=== PATIENT | female | born 1935 | race Caucasian/White ===

== ENCOUNTER → 2017-07-05 | Outpatient (CLI) | payer MEDICARE ==
[2016-10-12 17:26] VITALS: BP 109/98
[~2017-07-05] MED LIST: ACET325T9 PO; ASCO500C PO; ASPI-482 PO; AZIT250T6 PO; CALC667C6 PO; CAND1TAB4 PO; CARV6.25 PO; CHOL500016 PO; CRESTOR5 MG PO; ESOM40CA25 PO; FAMO-63 PO; MECL25TA3 PO; MULT-246 PO; NITR0.4T22 SL; NITR25CA2 PO; SIME125T17 PO; VALS1TAB22 PO; [UNRECOGNIZED DRUG - CODE] PO
--- NOTE | 2017-07-05 09:12 | RAD ---
Renal ultrasound 07/05/2017 Clinical history: Chronic cystitis. Technique: A real-time ultrasound examination of both kidneys and the urinary bladder was performed. Multiple images were obtained. Findings: Comparison study is dated 01/19/2017. Both kidneys are within normal limits in size and echogenicity. The right kidney measures 10.8 cm in length. The left kidney measures 11.2 cm in length. No focal abnormality of either kidney is seen. No hydronephrosis or renal calculus is seen. The urinary bladder is distended with urine. No abnormality is seen. The postvoid residual 7.6 mL. Impression: Negative study.
== END | disposition home or self-care (01) ==
LOC: US 07:45
PROVIDERS: ATTEND Urology
DX: N30.20 Other chronic cystitis without hematuria (principal)
CPT/HCPCS: 76770

== ENCOUNTER → 2017-09-04 | Outpatient (CLI) | payer MEDICARE ==
[2016-10-12 17:26] VITALS: BP 109/98
--- NOTE | 2017-09-04 13:12 | RAD ---
DATE: 09/04/17 EXAM: MAMMO HECTOR SCREENING BILATERAL HISTORY: Routine screening COMPARISON: 08/31/16 This study was interpreted with the benefit of Computerized Aided Detection (CAD). TECHNIQUE: Routine 2-D and 3-D screening mammograms of both breasts are obtained. FINDINGS: Breast Density: HETERO The breast parenchyma is heterogeneously dense, which could reduce sensitivity of mammography. Breast parenchyma level C.. No suspicious clustered microcalcifications, focal asymmetric densities or masses are seen. Stable benign calcifications are seen in both breasts. Skin and nipples are intact IMPRESSION: Benign findings BI-RADS CATEGORY: 2 BENIGN FINDING(S) RECOMMENDED FOLLOW-UP: 12M 12 MONTH FOLLOW-UP PQRS compliance statement: Patient information was entered into a reminder system with a target due date for the next mammogram. Mammography is a sensitive method for finding small breast cancers, but it does not detect them all and is not a substitute for careful clinical examination. A negative mammogram does not negate a clinically suspicious finding and should not result in delay in biopsying a clinically suspicious abnormality. "Our facility is accredited by the [employer] Mammography Program."
== END | disposition home or self-care (01) ==
LOC: MAMMO 07:45
PROVIDERS: ATTEND Nurse Practitioner Family
DX: Z12.31 Encounter for screening mammogram for malignant neoplasm of breast (principal)
CPT/HCPCS: 77063; G0202; 77067

== ENCOUNTER 2017-10-09 07:58 | Emergency (ER) | payer MEDICARE ==
[2017-10-09] MEDS ORDERED: IV NORMAL SALINE 1,000ML 1,000 ML IV SCH (08:02)
[2017-10-09 08:16] LABS: BASO % 1 % (0-3); EOS # 0.3 x10^3/uL (0.0-0.7); EOS % 6 % (0-3); HEMOGLOBIN 14.2 g/dL (12.0-15.5); LYMPH # 1.8 x10^3/uL (1.0-4.8); LYMPH % 35 % (24-48); MEAN CORPUSCULAR HEMOGLOBIN 32 pg (25-35); MEAN CORPUSCULAR HGB CONC 34 g/dL (31-37); MEAN CORPUSCULAR VOLUME 93 fL (79-100); MONO # 0.8 x10^3/uL (0.0-1.1); MONO % 16 % (0-9); NEUT # 2.2 x10^3uL (1.8-7.7); NEUT % 42 % (31-73); PLATELET COUNT 198 x10^3/uL (140-400); RED BLOOD COUNT 4.51 x10^6/uL (3.50-5.40); RED CELL DISTRIBUTION WIDTH 13.6 % (11.5-14.5); WHITE BLOOD COUNT 5.2 x10^3/uL (4.0-11.0)
[2017-10-09 08:22] LABS: CALCIUM 8.9 mg/dL (8.5-10.1); CREATININE 1.1 mg/dL (0.6-1.0); GFR 47.6; POTASSIUM 3.8 mmol/L (3.5-5.1)
--- NOTE | 2017-10-09 08:33 | EKG ---
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
--- NOTE | 2017-10-09 08:34 | RAD ---
CT head without contrast 10/09/2017 Clinical indication: Stroke like symptoms Comparison: None Technique: Multiple CT images of the head were performed without contrast according to standard protocol PQRS Compliance Statement: One or more of the following individualized dose reduction techniques were utilized for this examination: 1. Automated exposure control 2. Adjustment of the mA and/or kV according to patient size 3. Use of iterative reconstruction technique Findings: No acute intracranial hemorrhage or extra-axial fluid collection. The ventricles and subarachnoid spaces are normal in size and configuration for age. There is mild bilateral subcortical and periventricular white matter low attenuation compatible with mild nonspecific white matter disease. Saavedra-white matter interfaces are otherwise maintained. The basal cisterns are patent. Impression: 1. No acute intracranial hemorrhage. 2. Mild nonspecific white matter disease, most commonly seen with chronic small vessel ischemic disease.
[2017-10-09 09:48] LABS: BACTERIA,URINE 0 /HPF (0-FEW); BILIRUBIN,URINE NEG (NEG); CLARITY,URINE CLEAR; COLOR,URINE YELLOW; GLUCOSE,URINE NEG (NEG); NITRITE,URINE NEG (NEG); RBC,URINE 0 /HPF (0-2); SQUAMOUS EPITHELIAL CELL,UR OCC /LPF; UROBILINOGEN,URINE 0.2 mg/dL (0.2 mg/dL); WBC,URINE RARE /HPF (0-4)
--- NOTE | 2017-10-09 10:12 | PHYS DOC ---
Past History Past Medical History: GERD, High Cholesterol, Hypertension, Hypothyroid, Other Past Surgical History: Appendectomy, Tonsillectomy, Other Alcohol Use: None Drug Use: None Adult General Chief Complaint Chief Complaint: OTHER COMPLAINTS HPI HPI Patient is a 82 year old F who presents after having difficulty with word finding at approximately 7 AM this morning. She states that she woke up, did her normal crossword puzzles and ate breakfast. Thereafter she states that while sitting alone she felt that she had something disabled was unable to find words. She did walk down to her friends door and her symptoms had resolved by that time. She has no other associated symptoms. Her symptoms completely resolved. She has no exacerbating or alleviating factors that she knows of. She has no history of stroke or other clot. She does not take blood thinners. Review of Systems Review of Systems Constitutional: Denies fever or chills [] Eyes: Denies change in visual acuity, redness, or eye pain [] HENT: Denies nasal congestion or sore throat [] Respiratory: Denies cough or shortness of breath [] Cardiovascular: No additional information not addressed in HPI [] GI: Denies abdominal pain, nausea, vomiting, bloody stools or diarrhea [] : Denies dysuria or hematuria [] Musculoskeletal: Denies back pain or joint pain [] Integument: Denies rash or skin lesions [] Neurologic: Denies headache, focal weakness or sensory changes [] Endocrine: Denies polyuria or polydipsia [] All other systems were reviewed and found to be within normal limits, except as documented in this note. Family History Family History Noncontributory Current Medications Current Medications Current Medications Medications (Trade) Dose Ordered Sig/[facility] Start Time Stop Time Status Last Admin Dose Admin Sodium Chloride 1,000 ml @ 1,000 mls/hr Q1H 10/09/17 08:02 10/09/17 09:01 DC 10/09/17 08:30 1,000 MLS/HR Allergies Allergies Allergies Coded Allergies Type Severity Reaction Last Updated Verified Penicillins Allergy Intermediate Rash 10/12/16 Yes Sulfa (Sulfonamide Antibiotics) Allergy Intermediate Nausea 10/12/16 Yes Physical Exam Physical Exam Constitutional: Well developed, well nourished, no acute distress, non-toxic appearance. [] HENT: Normocephalic, atraumatic, bilateral external ears normal, oropharynx moist, no oral exudates, nose normal. [] Eyes: PERRLA, EOMI, conjunctiva normal, no discharge. [] Neck: Normal range of motion, no tenderness, supple, no stridor. [] Cardiovascular:Heart rate regular rhythm, no murmur [] Lungs & Thorax: Bilateral breath sounds clear to auscultation [] Abdomen: Bowel sounds normal, soft, no tenderness, no masses, no pulsatile masses. [] Skin: Warm, dry, no erythema, no rash. [] Back: No tenderness, no CVA tenderness. [] Extremities: No tenderness, no cyanosis, no clubbing, ROM intact, no edema. [] Neurologic: Alert and oriented X 3, normal motor function, normal sensory function, no focal deficits noted. [] Psychologic: Affect normal, judgement normal, mood normal. [] Current Patient Data Vital Signs Vital Signs Date Time Temp Pulse Resp B/P (MAP) Pulse Ox O2 Delivery O2 Flow Rate FiO2 10/09/17 10:34 59 16 155/98 (117) 98 Room Air 10/09/17 09:30 61 16 124/95 (105) 97 Room Air 10/09/17 08:00 98.0 58 16 97 Room Air Lab Results Laboratory Tests Test 10/09/17 08:00 10/09/17 09:25 White Blood Count 5.2 x10^3/uL (4.0-11.0) Red Blood Count 4.51 x10^6/uL (3.50-5.40) Hemoglobin 14.2 g/dL (12.0-15.5) Hematocrit 42.0 % (36.0-47.0) Mean Corpuscular Volume 93 fL (79-100) Mean Corpuscular Hemoglobin 32 pg (25-35) Mean Corpuscular Hemoglobin Concent 34 g/dL (31-37) Red Cell Distribution Width 13.6 % (11.5-14.5) Platelet Count 198 x10^3/uL (140-400) Neutrophils (%) (Auto) 42 % (31-73) Lymphocytes (%) (Auto) 35 % (24-48) Monocytes (%) (Auto) 16 % (0-9) H Eosinophils (%) (Auto) 6 % (0-3) H Basophils (%) (Auto) 1 % (0-3) Neutrophils # (Auto) 2.2 x10^3uL (1.8-7.7) Lymphocytes # (Auto) 1.8 x10^3/uL (1.0-4.8) Monocytes # (Auto) 0.8 x10^3/uL (0.0-1.1) Eosinophils # (Auto) 0.3 x10^3/uL (0.0-0.7) Basophils # (Auto) 0.0 x10^3/uL (0.0-0.2) Sodium Level 139 mmol/L (136-145) Potassium Level 3.8 mmol/L (3.5-5.1) Chloride Level 103 mmol/L (98-107) Carbon Dioxide Level 28 mmol/L (21-32) Anion Gap 8 (6-14) Blood Urea Nitrogen 20 mg/dL (7-20) Creatinine 1.1 mg/dL (0.6-1.0) H Estimated GFR (Cockcroft-Gault) 47.6 Glucose Level 110 mg/dL (70-99) H Calcium Level 8.9 mg/dL (8.5-10.1) Troponin I Quantitative < 0.017 ng/mL (0-0.055) Urine Collection Type Unknown Urine Color Yellow Urine Clarity Clear Urine pH 7.5 Urine Specific [place] 1.015 Urine Protein Neg (NEG-TRACE) Urine Glucose (UA) Neg mg/dL (NEG) Urine Ketones (Stick) Neg mg/dL (NEG) Urine Blood Neg (NEG) Urine Nitrite Neg (NEG) Urine Bilirubin Neg (NEG) Urine Urobilinogen Dipstick 0.2 mg/dL (0.2 mg/dL) Urine Leukocyte Esterase Trace (NEG) Urine RBC 0 /HPF (0-2) Urine WBC Rare /HPF (0-4) Urine Squamous Epithelial Cells Occ /LPF Urine Bacteria 0 /HPF (0-FEW) EKG EKG Normal sinus rhythm without any ST changes Radiology/Procedures Radiology/Procedures Head CT Impressions: No acute disease per radiology report Course & Med Decision Making Course & Med Decision Making Pertinent Labs and Imaging studies reviewed. (See chart for details) Admission for observation was declined. Her case was discussed with 2 of her sons. All questions and concerns were addressed. Dragon Disclaimer Dragon Disclaimer This electronic medical record was generated, in whole or in part, using a voice recognition dictation system. Departure Departure: Impression: Primary Impression: Encounter for medical screening examination Disposition: 01 HOME, SELF-CARE Condition: IMPROVED Referrals: MELISA BANUELOS APRN (PCP) Patient Instructions: Transient Ischemic Attack Additional Instructions: Petra was seen in the emergency department for difficulty speaking which resolved prior to evaluation. No emergency medical condition was found on history or physical exam. She did have normal labs and imaging. Her symptoms did not recur during her stay in the emergency room. She was advised to return the emergency room if she develops new or worsening symptoms. She was also advised follow-up with her primary care doctor in the next 2-3 days for further evaluation. BRANDON LEONARD MD Oct 09, 2017 10:12
[2017-10-09 10:34] VITALS: BP 155/98
== END 2017-10-09 10:34 | disposition home or self-care (01) ==
LOC: ER 07:58
DX: E78.00 Pure hypercholesterolemia, unspecified (principal); I10 Essential (primary) hypertension; E03.9 Hypothyroidism, unspecified; K21.9 Gastro-esophageal reflux disease without esophagitis; Z88.0 Allergy status to penicillin; Z88.2 Allergy status to sulfonamides
CPT/HCPCS: 36415; 70450; 80048; 81001; 84484; 85025; 93005; 96360; 99285-25; J7030

== ENCOUNTER → 2017-10-23 | Outpatient (CLI) | payer MEDICARE ==
[2017-10-09 10:34] VITALS: BP 155/98
--- NOTE | 2017-10-23 09:53 | RAD ---
Carotid ultrasound, 10/23/2017: History: TIA, speech difficulty Duplex evaluation of the carotid arteries in neck was performed including grayscale, color-flow and spectral Doppler analysis. There is mild intimal thickening in the common carotid arteries and mild plaquing at the carotid bifurcations. The peak systolic velocity in the right internal carotid artery is 63 cm/s with an end-diastolic velocity of 18 cm/s. The peak systolic velocity in the left internal carotid artery is 81 cm/s with an end-diastolic velocity of 26 cm/s. The Doppler findings suggest luminal narrowing in the 0-50% diameter range. There is no Doppler evidence of high-grade carotid stenosis. Antegrade flow is present in both vertebral arteries in the neck. IMPRESSION: Mild atherosclerotic plaquing at both carotid bifurcations with underlying luminal narrowing in the 0-50% diameter range bilaterally. Note: Stenosis calculations for CTA, MRA and conventional angiography are based upon determination of the distal ICA diameter in accordance with the NASCET methodology. Stenosis calculations for Doppler studies are derived from validated velocity criteria which are known to correlate with NASCET methodology of determining stenosis.
== END | disposition home or self-care (01) ==
LOC: US 08:13
PROVIDERS: ATTEND Internal Medicine
DX: G45.9 Transient cerebral ischemic attack, unspecified (principal)
CPT/HCPCS: 93880

== ENCOUNTER 2017-10-25 10:57 | Emergency (ER) | payer MEDICARE ==
[~2017-10-25] VITALS: Ht 167.6 cm; Wt 88.5 kg
[2017-10-25] MEDS ORDERED: IV NORMAL SALINE 1,000ML 1,000 ML IV SCH (11:31)
[2017-10-25 11:55] LABS: BASO # 0.1 x10^3/uL (0.0-0.2); BASO % 1 % (0-3); EOS # 0.2 x10^3/uL (0.0-0.7); EOS % 3 % (0-3); HEMATOCRIT 39.5 % (36.0-47.0); HEMOGLOBIN 13.3 g/dL (12.0-15.5); LYMPH # 1.8 x10^3/uL (1.0-4.8); LYMPH % 31 % (24-48); MEAN CORPUSCULAR HEMOGLOBIN 31 pg (25-35); MEAN CORPUSCULAR HGB CONC 34 g/dL (31-37); MEAN CORPUSCULAR VOLUME 93 fL (79-100); MONO # 0.8 x10^3/uL (0.0-1.1); MONO % 13 % (0-9); NEUT # 3.1 x10^3uL (1.8-7.7); NEUT % 52 % (31-73); PLATELET COUNT 175 x10^3/uL (140-400); RED BLOOD COUNT 4.25 x10^6/uL (3.50-5.40); RED CELL DISTRIBUTION WIDTH 13.6 % (11.5-14.5); WHITE BLOOD COUNT 5.9 x10^3/uL (4.0-11.0)
--- NOTE | 2017-10-25 12:06 | RAD ---
CT head Indication:dysphagia Technique: CT head without IV contrast Comparison: Previous study from 10/09/2017 Findings: No pathologic extra-axial or intra-axial fluid collection. The ventricles and basal cisterns are within normal limits. No focal loss of solano-white differentiation. Mild amount of periventricular and deep white matter low-attenuation noted. No acute intracranial bleed. Visualized orbits are within normal limits. No calvarial lesions. Visualized paranasal sinuses and mastoid air cells are clear. Impression: No acute intracranial process on this noncontrast CT. Mild white matter changes most likely secondary to chronic ischemic microvascular disease. PQRS Compliance Statement: One or more of the following individualized dose reduction techniques were utilized for this examination: 1. Automated exposure control 2. Adjustment of the mA and/or kV according to patient size 3. Use of iterative reconstruction technique
[2017-10-25 12:07] LABS: ALBUMIN 3.8 g/dL (3.4-5.0); ALBUMIN/GLOBULIN RATIO 1.1 (1.0-1.7); CALCIUM 9.1 mg/dL (8.5-10.1); CREATININE 1.1 mg/dL (0.6-1.0); GFR 47.6; POTASSIUM 3.9 mmol/L (3.5-5.1); TOTAL BILIRUBIN 0.4 mg/dL (0.2-1.0); TOTAL PROTEIN 7.3 g/dL (6.4-8.2)
--- NOTE | 2017-10-25 12:17 | PHYS DOC ---
Past History Past Medical History: GERD, Hypertension, Other Past Surgical History: Appendectomy, Tonsillectomy Alcohol Use: None Drug Use: None Adult General Chief Complaint Chief Complaint: TIA HPI HPI Patient is a 82 year old female who presents with dysarthria. [facility] and for [facility] few minutes she was unable to talk. The time she arrived to the emergency department over symptoms of result. She states she feels tired. She denies any shortness of breath, chest pain, nausea vomiting, she denies any weakness in her arms or legs. She states she's she had similar symptoms several weeks ago and her primary care physician increased her aspirin from 81 mg 162 a day. Review of Systems Review of Systems Constitutional: Denies fever or chills [] Eyes: Denies change in visual acuity, redness, or eye pain [] HENT: Denies nasal congestion or sore throat [] Respiratory: Denies cough or shortness of breath [] Cardiovascular: No additional information not addressed in HPI [] GI: Denies abdominal pain, nausea, vomiting, bloody stools or diarrhea [] : Denies dysuria or hematuria [] Musculoskeletal: Denies back pain or joint pain [] Integument: Denies rash or skin lesions [] Neurologic: Denies headache, focal weakness or sensory changes [] Endocrine: Denies polyuria or polydipsia [] All other systems were reviewed and found to be within normal limits, except as documented in this note. Current Medications Current Medications Current Medications Medications (Trade) Dose Ordered Sig/[facility] Start Time Stop Time Status Last Admin Dose Admin Sodium Chloride 1,000 ml @ 1,000 mls/hr Q1H 10/25/17 11:31 10/25/17 12:30 Allergies Allergies Allergies Coded Allergies Type Severity Reaction Last Updated Verified Penicillins Allergy Intermediate Rash 10/12/16 Yes Sulfa (Sulfonamide Antibiotics) Allergy Intermediate Nausea 10/12/16 Yes Physical Exam Physical Exam Constitutional: Well developed, well nourished, no acute distress, non-toxic appearance. [] HENT: Normocephalic, atraumatic, bilateral external ears normal, oropharynx moist, no oral exudates, nose normal. [] Eyes: PERRLA, EOMI, conjunctiva normal, no discharge. [] Neck: Normal range of motion, no tenderness, supple, no stridor. [] Cardiovascular:Heart rate regular rhythm, no murmur [] Lungs & Thorax: Bilateral breath sounds clear to auscultation [] Abdomen: Bowel sounds normal, soft, no tenderness, no masses, no pulsatile masses. [] Skin: Warm, dry, no erythema, no rash. [] Back: No tenderness, no CVA tenderness. [] Extremities: No tenderness, no cyanosis, no clubbing, ROM intact, no edema. [] Neurologic: Alert and oriented X 3, normal motor function, normal sensory function, no focal deficits noted. [] Psychologic: Affect normal, judgement normal, mood normal. [] Current Patient Data Lab Results Laboratory Tests Test 10/25/17 11:37 White Blood Count 5.9 x10^3/uL (4.0-11.0) Red Blood Count 4.25 x10^6/uL (3.50-5.40) Hemoglobin 13.3 g/dL (12.0-15.5) Hematocrit 39.5 % (36.0-47.0) Mean Corpuscular Volume 93 fL (79-100) Mean Corpuscular Hemoglobin 31 pg (25-35) Mean Corpuscular Hemoglobin Concent 34 g/dL (31-37) Red Cell Distribution Width 13.6 % (11.5-14.5) Platelet Count 175 x10^3/uL (140-400) Neutrophils (%) (Auto) 52 % (31-73) Lymphocytes (%) (Auto) 31 % (24-48) Monocytes (%) (Auto) 13 % (0-9) H Eosinophils (%) (Auto) 3 % (0-3) Basophils (%) (Auto) 1 % (0-3) Neutrophils # (Auto) 3.1 x10^3uL (1.8-7.7) Lymphocytes # (Auto) 1.8 x10^3/uL (1.0-4.8) Monocytes # (Auto) 0.8 x10^3/uL (0.0-1.1) Eosinophils # (Auto) 0.2 x10^3/uL (0.0-0.7) Basophils # (Auto) 0.1 x10^3/uL (0.0-0.2) Prothrombin Time 11.4 SEC (9.4-11.4) Prothrombin Time INR 1.1 (0.9-1.1) PTT 24 SEC (23-33) Sodium Level 137 mmol/L (136-145) Potassium Level 3.9 mmol/L (3.5-5.1) Chloride Level 101 mmol/L (98-107) Carbon Dioxide Level 29 mmol/L (21-32) Anion Gap 7 (6-14) Blood Urea Nitrogen 19 mg/dL (7-20) Creatinine 1.1 mg/dL (0.6-1.0) H Estimated GFR (Cockcroft-Gault) 47.6 BUN/Creatinine Ratio 17 (6-20) Glucose Level 104 mg/dL (70-99) H Lactic Acid Level 0.9 mmol/L (0.4-2.0) Calcium Level 9.1 mg/dL (8.5-10.1) Total Bilirubin 0.4 mg/dL (0.2-1.0) Aspartate Amino Transferase (AST) 20 U/L (15-37) Alanine Aminotransferase (ALT) 23 U/L (14-59) Alkaline Phosphatase 58 U/L (46-116) Troponin I Quantitative < 0.017 ng/mL (0-0.055) Total Protein 7.3 g/dL (6.4-8.2) Albumin 3.8 g/dL (3.4-5.0) Albumin/Globulin Ratio 1.1 (1.0-1.7) EKG EKG EKG shows sinus rhythm with rate of [address] elevations or concerning T-wave inversions, left axis deviation noted, QTC 439 ms, as interpreted by me. Radiology/Procedures Radiology/Procedures [address] [address] IMAGING REPORT Signed PATIENT: MELISA CHAUHAN ACCOUNT: [id number] : 1935 LOCATION: ER AGE: 82 SEX: F EXAM STATUS: PRE ER ORD. PHYSICIAN: AZRA HARTLEY MD REASON: dysphagia PROCEDURE: CT HEAD WO CONTRAST CT head Indication:dysphagia Technique: CT head without IV contrast Comparison: Previous study from 10/09/2017 Findings: No pathologic extra-axial or intra-axial fluid collection. The ventricles and basal cisterns are within normal limits. No focal loss of solano-white differentiation. Mild amount of periventricular and deep white matter low-attenuation noted. No acute intracranial bleed. Visualized orbits are within normal limits. No calvarial lesions. Visualized paranasal sinuses and mastoid air cells are clear. Impression: No acute intracranial process on this noncontrast CT. Mild white matter changes most likely secondary to chronic ischemic microvascular disease. PQRS Compliance Statement: One or more of the following individualized dose reduction techniques were utilized for this examination: 1. Automated exposure control 2. Adjustment of the mA and/or kV according to patient size 3. Use of iterative reconstruction technique DICTATED AND SIGNED BY: MANDI RAYMOND DO DATE: 10/25/17 1201 CC: AZRA HARTLEY MD; MELIAS BANUELOS APRN ~ Impressions: TIA Course & Med Decision Making Course & Med Decision Making Pertinent Labs and Imaging studies reviewed. (See chart for details) Labs, CT head, nonacute. This is her second TIA she's had in the last 6 weeks. Patient being accepted by Dr. santos to [facility]. Her NIH was 0. Her neuro exam is completely normal. Dragon Disclaimer Dragon Disclaimer This electronic medical record was generated, in whole or in part, using a voice recognition dictation system. Departure Departure: Impression: Primary Impression: TIA (transient ischemic attack) Disposition: 02 XFER T-[facility] Admitting Physician: Other Condition: STABLE Referrals: MELISA BANUELOS APRN (PCP) AZRA HARTLEY MD Oct 25, 2017 12:17
[2017-10-25 13:01] LABS: CLARITY,URINE CLEAR; COLOR,URINE YELLOW; GLUCOSE,URINE NEG (NEG)
[2017-10-25 13:02] LABS: AMPHETAMINE/METHAMPHETAMINE NEG (NEG); BACTERIA,URINE 0 /HPF (0-FEW); BARBITURATES NEG (NEG); BENZODIAZEPINES NEG (NEG); BILIRUBIN,URINE NEG (NEG); CANNABINOIDS NEG (NEG); COCAINE NEG (NEG); METHADONE NEG (NEG); NITRITE,URINE NEG (NEG); OPIATES NEG (NEG); PHENCYCLIDINE NEG (NEG); RBC,URINE RARE /HPF (0-2); SQUAMOUS EPITHELIAL CELL,UR OCC /LPF; UROBILINOGEN,URINE 0.2 mg/dL (0.2 mg/dL)
--- NOTE | 2017-10-25 13:47 | EKG ---
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
[2017-10-25 14:28] VITALS: BP 160/84
== END 2017-10-25 15:40 | disposition short-term general hospital (02) ==
LOC: ER 10:57
DX: G45.9 Transient cerebral ischemic attack, unspecified (principal); I10 Essential (primary) hypertension; K21.9 Gastro-esophageal reflux disease without esophagitis; Z88.2 Allergy status to sulfonamides; Z88.0 Allergy status to penicillin
CPT/HCPCS: 36415; 70450; 80053; 80307; 81001; 82947; 83605; 84484; 85025; 85610; 85730; 93005; 96360; 96361; 99285-25; G0479; J7030

== ENCOUNTER 2018-02-10 06:21 | Emergency (ER) | payer MEDICARE ==
[~2018-02-10] VITALS: Ht 167.6 cm; Wt 89.8 kg
--- NOTE | 2018-02-10 06:30 | PHYS DOC ---
Past History Past Medical History: GERD, Hypertension, Other Past Surgical History: Appendectomy, Tonsillectomy Alcohol Use: None Drug Use: None Adult General Chief Complaint Chief Complaint: nausea, dizzy HPI HPI Patient is a 82 year old female who presents with nausea, queasy feeling stomach , dizziness. She states her symptoms started last night she felt nauseated but has not had any vomiting or diarrhea. She states her stomach feels queasy and when she tries to get up to ambulate she feels dizzy, off-balance type symptoms , no vertigo noted. [facility] is reporting or did orthostatics and reported it was normal. She was given Zofran and feels better now. She denies any chest pain shortness of breath fevers chills. She has a history of hypothyroidism, hypertension, dyslipidemia, TIA, and is on Plavix. She also has a history of recurrent UTIs and takes Keflex for this. Review of Systems Review of Systems Constitutional: Denies fever or chills [] Eyes: Denies change in visual acuity, redness, or eye pain [] HENT: Denies nasal congestion or sore throat [] Respiratory: Denies cough or shortness of breath [] Cardiovascular: No additional information not addressed in HPI [] GI: Positive for abdominal pain, nausea,Denies vomiting, bloody stools or diarrhea [] : Denies dysuria or hematuria [] Musculoskeletal: Denies back pain or joint pain [] Integument: Denies rash or skin lesions [] Neurologic: Denies headache, focal weakness or sensory changes [] Endocrine: Denies polyuria or polydipsia [] All other systems were reviewed and found to be within normal limits, except as documented in this note. Allergies Allergies Allergies Coded Allergies Type Severity Reaction Last Updated Verified Penicillins Allergy Intermediate Rash 10/12/16 Yes Sulfa (Sulfonamide Antibiotics) Allergy Intermediate Nausea 10/12/16 Yes Physical Exam Physical Exam Constitutional: Well developed, well nourished, no acute distress, non-toxic appearance. [] HENT: Normocephalic, atraumatic, bilateral external ears normal, oropharynx moist, no oral exudates, nose normal. [] Eyes: PERRLA, EOMI, conjunctiva normal, no discharge. [] Neck: Normal range of motion, no tenderness, supple, no stridor. [] Cardiovascular:Heart rate regular rhythm, no murmur [] Lungs & Thorax: Bilateral breath sounds clear to auscultation [] Abdomen: Bowel sounds normal, soft, no tenderness, no masses, no pulsatile masses. [] Skin: Warm, dry, no erythema, no rash. [] Back: No tenderness, no CVA tenderness. [] Extremities: No tenderness, no cyanosis, no clubbing, ROM intact, no edema. [] Neurologic: Alert and oriented X 3, normal motor function, normal sensory function, no focal deficits noted. [] Psychologic: Affect normal, judgement normal, mood normal. [] EKG EKG EKG shows sinus bradycardia with rate of 43 bpm without any concerning ST elevations or T-wave inversions, left axis deviation noted, QTC 439 ms, as interpreted by me. Of note on September 2017 she had 2 EKGs with heart rates of 52 and 58 and 30 EKG in March 2013 with a heart rate of 57 Radiology/Procedures Radiology/[place] [address] IMAGING REPORT Signed PATIENT: MELISA CHAUHAN ACCOUNT: [id number] : 1935 LOCATION: ER AGE: 82 SEX: F EXAM STATUS: REG ER ORD. PHYSICIAN: AZRA HARTLEY MD REASON: dizziness PROCEDURE: PORTABLE CHEST 1V Indication: Dizziness with nausea Technique: Portable AP upright chest x-ray Comparison: Previous study from 08/02/2013 Findings: Heart is normal in size. Stable elevation of right hemidiaphragm noted. Lungs are clear. No pneumothorax or pleural effusion. Moderate-sized hiatal hernia noted. Visualized bony thorax within normal limits. Impression: No acute cardiopulmonary process. Small to moderate sliding hiatal hernia. DICTATED AND SIGNED BY: MANDI RAYMOND DO DATE: 02/10/18 0746 CC: AZRA HARTLEY MD; MELISA BANUELOS ACCOUNTS PAYABLE OR RECEIVABLE CLERK ~ Impressions: Dizziness Bradycardia UTI Course & Med Decision Making Course & Med Decision Making Pertinent Labs and Imaging studies reviewed. (See chart for details) Orthostatics was repeated here and on supine blood pressure 140/73 the heart rate 52 and then standing was 146/65 with heart rate of 55, laying blood pressure 115/72 with a heart rate of 55. EKG does show sinus bradycardia rate of 43 previous EKGs all head her heart rates in the 50s from 50 to up to 58. She currently has a heart rate in the mid 50s. She states she feels better after she received IV fluids. She was able to ambulate to the bathroom and back without any assistance or difficulties. We repeated a set of troponins and CK- MB which is normal, and I've encouraged her to decrease/DC her metoprolol and follow-up with primary care physician. Encouraged tomorrow to call her grip assembler at [facility] and let them know about her bradycardia and holding her metoprolol. She is a UTI and she received 1 g of Rocephin is being discharged with 7 days of Macrobid. She does have an allergy to penicillin and sulfa but has tolerated Macrobid and cephalosporins in the past She is requesting we discharged home. Return precautions given. She is agreeable plan being discharged in stable condition at this time. Dragon Disclaimer Aleta Disclaimer This electronic medical record was generated, in whole or in part, using a voice recognition dictation system. Departure Departure: Impression: Primary Impression: UTI (urinary tract infection) Disposition: HOME, SELF-CARE Condition: STABLE Referrals: MELISA BANUELOS APRN (PCP) Patient Instructions: Dizziness Additional Instructions: Your being discharged home. Your heart rate has improved from the 40s and to your normal rate of 50 and you feel better after receiving IV fluids. You have bacteria in your urine and signs of a bladder infection. You received IV antibiotics called Rocepshadn, and your being discharged with Macrobid for the next 7 days. You will need to stop taking your metoprolol over the next few days and record your blood pressure and heart rate. Tomorrow morning, Sunday, you will need to call your grip assembler and inform them of your heart rate that was in the mid 40s and your dizziness and that we've asked you to not take your metoprolol for the next few days. If you develop throbbing headache, chest pain , shortness of breath, blood pressures greater than 170s, worsening dizziness, or any other concerns you can return back to the ER. You should also follow up your primary care physician within the next few days. Scripts Nitrofurantoin Monohyd/M-Cryst (MACROBID 100 MG CAPSULE) 100 Mg Capsule 1 CAP PO BID, #14 CAP Prov: AZRA HARTLEY MD 02/10/18 AZRA HARTLEY MD Feb 10, 2018 06:30
[2018-02-10 06:49] LABS: BASO # 0.1 x10^3/uL (0.0-0.2); BASO % 1 % (0-3); EOS # 0.1 x10^3/uL (0.0-0.7); EOS % 2 % (0-3); HEMATOCRIT 38.8 % (36.0-47.0); HEMOGLOBIN 13.3 g/dL (12.0-15.5); LYMPH # 1.7 x10^3/uL (1.0-4.8); LYMPH % 30 % (24-48); MEAN CORPUSCULAR HEMOGLOBIN 32 pg (25-35); MEAN CORPUSCULAR HGB CONC 34 g/dL (31-37); MEAN CORPUSCULAR VOLUME 92 fL (79-100); MONO # 0.6 x10^3/uL (0.0-1.1); MONO % 11 % (0-9); NEUT # 3.1 x10^3uL (1.8-7.7); NEUT % 56 % (31-73); PLATELET COUNT 178 x10^3/uL (140-400); RED BLOOD COUNT 4.23 x10^6/uL (3.50-5.40); RED CELL DISTRIBUTION WIDTH 13.5 % (11.5-14.5); WHITE BLOOD COUNT 5.5 x10^3/uL (4.0-11.0)
--- NOTE | 2018-02-10 06:49 | EKG ---
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
[2018-02-10] MEDS ORDERED: calcium (06:55)
[2018-02-10] MEDS ORDERED: LOSA1TAB22 PO (06:58)
[2018-02-10] MEDS ORDERED: CEPH-263 PO (06:58)
[2018-02-10] MEDS ORDERED: CLOP75TA57 PO (06:59)
[2018-02-10] MEDS ORDERED: PRAV20TA2 PO (06:59)
[2018-02-10] MEDS ORDERED: METO50TA6 PO (06:59)
[2018-02-10] MEDS ORDERED: ONDANSETRON PF 4 MG/2 ML VIAL. IV ONE (07:00)
[2018-02-10] MEDS ORDERED: IV NORMAL SALINE 1,000ML 1,000 ML IV SCH (07:00)
[2018-02-10 07:14] LABS: ALBUMIN 3.6 g/dL (3.4-5.0); CALCIUM 9.4 mg/dL (8.5-10.1); CREATININE 0.9 mg/dL (0.6-1.0); DIRECT BILIRUBIN 0.1 mg/dL (0.0-0.2); GFR 59.9; MAGNESIUM 1.9 mg/dL (1.8-2.4); POTASSIUM 3.9 mmol/L (3.5-5.1); TOTAL BILIRUBIN 0.4 mg/dL (0.2-1.0); TOTAL PROTEIN 7.1 g/dL (6.4-8.2)
--- NOTE | 2018-02-10 07:49 | RAD ---
Indication: Dizziness with nausea Technique: Portable AP upright chest x-ray Comparison: Previous study from 08/02/2013 Findings: Heart is normal in size. Stable elevation of right hemidiaphragm noted. Lungs are clear. No pneumothorax or pleural effusion. Moderate-sized hiatal hernia noted. Visualized bony thorax within normal limits. Impression: No acute cardiopulmonary process. Small to moderate sliding hiatal hernia.
[2018-02-10 07:52] LABS: BACTERIA,URINE FEW /HPF (0-FEW); BILIRUBIN,URINE NEG (NEG); CLARITY,URINE HAZY; COLOR,URINE YELLOW; GLUCOSE,URINE NEG (NEG); HYALINE CASTS, URINE OCC /HPF; NITRITE,URINE NEG (NEG); SQUAMOUS EPITHELIAL CELL,UR MOD /LPF; UROBILINOGEN,URINE 0.2 mg/dL (0.2 mg/dL)
[2018-02-10] MEDS ORDERED: cefTRIAXone IV Push 1 GM VIAL. IVP ONE (08:00)
[2018-02-10] MEDS ORDERED: NITR100C62 PO (08:28)
[2018-02-10 08:52] VITALS: BP 145/52
== END 2018-02-10 09:02 | disposition home or self-care (01) ==
LOC: ER 06:21
DX: N39.0 Urinary tract infection, site not specified (principal); R00.1 Bradycardia, unspecified; I10 Essential (primary) hypertension; K21.9 Gastro-esophageal reflux disease without esophagitis; E03.9 Hypothyroidism, unspecified; E78.5 Hyperlipidemia, unspecified; Z86.73 Personal history of transient ischemic attack (TIA), and cerebral infarction without residual deficits; Z79.02 Long term (current) use of antithrombotics/antiplatelets; Z90.49 Acquired absence of other specified parts of digestive tract; Z88.2 Allergy status to sulfonamides; Z88.0 Allergy status to penicillin
CPT/HCPCS: 36415; 71045; 80048; 80076; 81001; 82553; 83605; 83690; 83735; 83880; 84443; 84484; 85025; 87086; 93005; 96374; 96375; 99285; J0696; J2405; J7030

== ENCOUNTER → 2018-04-02 | Outpatient (CLI) | payer MEDICARE ==
[~2018-04-02] MED LIST changes: +CEPH-263 PO; +CLOP75TA57 PO; +LOSA1TAB22 PO; +METO50TA6 PO; +NITR100C62 PO; +PRAV20TA2 PO; +calcium
--- NOTE | 2018-04-02 15:19 | RAD ---
EXAM: Thoracic spine, 3 views. HISTORY: Pain. COMPARISON: None. FINDINGS: Frontal, lateral and swimmer's views of the thoracic spine are obtained. There is increased thoracic kyphosis. There is slight anterolisthesis of the upper and mid cervical levels. There is minimal thoracic scoliosis. There is no fracture. IMPRESSION: 1. No acute osseous finding. 2. Thoracic kyphosis and slight scoliosis. Electronically signed by: Tess Brumfield MD (04/02/2018 3:16 PM) [id number]
== END | disposition home or self-care (01) ==
LOC: PMG 14:17
PROVIDERS: ATTEND Nurse Practitioner Family
DX: M40.294 Other kyphosis, thoracic region (principal)
CPT/HCPCS: 72072

== ENCOUNTER → 2018-05-21 | Outpatient (CLI) | payer MEDICARE ==
[~2018-05-21] MED LIST changes: +IOHEXOL 240 MG/ML 50ML VIAL. ONE; +IOHEXOL 240 MG/ML 50ML VIAL. PO ONE; +IOHEXOL 300 MG/ML 75 ML VIAL. IV ONE
[2018-05-21 09:26] LABS: CREATININE 1.2 mg/dL (0.6-1.0); GFR 42.9
--- NOTE | 2018-05-21 13:02 | RAD ---
CT of the abdomen and pelvis without contrast, 05/21/2018: HISTORY: Abdominal pain, irritable bowel syndrome Multidetector CT imaging was performed following oral administration of contrast. No IV contrast was administered as requested. There is a large hiatal hernia. Approximately half of the stomach lies above the level of the diaphragmatic hiatus. There is a 2 cm low-density well-defined structure in the left lobe of the liver compatible with a cyst. The unopacified liver is otherwise unremarkable. No gallbladder abnormality is seen. The pancreas is unremarkable. The spleen is of normal size. There is mild bilateral renal cortical scarring. The kidneys show no evidence of obstruction. No adrenal abnormality is detected. Moderate aortoiliac calcific plaquing is present without evidence of aneurysm. No abdominal or pelvic adenopathy is seen. The uterus is unremarkable. There is a moderate amount of stool in the colon. A few scattered colonic diverticula are seen without evidence of paracolic inflammation. Small bowel loops are of normal caliber. No free fluid or free air is evident in the abdomen or pelvis. Mild scattered degenerative changes are present in the spine. IMPRESSION: 1. Colonic diverticulosis. 2. Large hiatal hernia. 3. No acute abdominal or pelvic abnormality is detected. Electronically signed by: Rodger Pollock MD (05/21/2018 12:58 PM) [facility]
== END | disposition home or self-care (01) ==
LOC: CT 08:55
PROVIDERS: ATTEND Physician Assistant
DX: K57.30 Diverticulosis of large intestine without perforation or abscess without bleeding (principal); K44.9 Diaphragmatic hernia without obstruction or gangrene; I10 Essential (primary) hypertension; Z79.01 Long term (current) use of anticoagulants
CPT/HCPCS: 36415; 74176; 82565; 84520; Q9966

== ENCOUNTER 2018-05-26 19:35 | Inpatient (IN) | payer MEDICARE ==
[~2018-05-26] VITALS: Ht 167.6 cm; Wt 91.6 kg
[~2018-05-26 19:35] MED LIST changes: -IOHEXOL 240 MG/ML 50ML VIAL. ONE; -IOHEXOL 240 MG/ML 50ML VIAL. PO ONE; -IOHEXOL 300 MG/ML 75 ML VIAL. IV ONE
[2018-05-26] MEDS ORDERED: dilTIAZem 25 MG/5 ML VIAL IVP ONE (19:45)
--- NOTE | 2018-05-26 19:45 | ED.ADGEN ---
Past History Past Medical History: GERD, High Cholesterol, Hypertension, Hypothyroid, TIA, UTI, Other Past Surgical History: Appendectomy, Tonsillectomy Alcohol Use: None Drug Use: None Adult General Chief Complaint Chief Complaint ".. I am having a fast heart rate... I ve had it before.. one time they gave me IV meds...one time I got shocked....I see [facility]... and Damian for the heart...I am on Plavix for a TIA ... I had..." [facility] HPI Patient is a 83 year old female who presents with above hx and complaints of rapid heart rate. Patient has had supraventricular tachycardia past. Corrected both by IV medications and one time with synchronized cardioversion. Patient has had previous TIA and is on Plavix. Patient has had uncomfortable's with a heart rate in the center chest. No recent change in medications or excessive caffeine use. Patient normally follows with [facility]. Pt. denies any travel or ill contacts. No history immunosuppression. Review of Systems Review of Systems Constitutional: Denies fever or chills [] Eyes: Denies change in visual acuity, redness, or eye pain [] HENT: Denies nasal congestion or sore throat [] Respiratory: Denies cough or shortness of breath [] Cardiovascular: No additional information not addressed in HPI [] GI: Denies abdominal pain, nausea, vomiting, bloody stools or diarrhea [] : Denies dysuria or hematuria [] Musculoskeletal: Denies back pain or joint pain [] Integument: Denies rash or skin lesions [] Neurologic: Denies headache, focal weakness or sensory changes [] Endocrine: Denies polyuria or polydipsia [] All other systems were reviewed and found to be within normal limits, except as documented in this note. Family History Family History Noncontributory Current Medications Current Medications Current Medications Medications (Trade) Dose Ordered Sig/Graham Start Time Stop Time Status Last Admin Dose Admin Aspirin (Children'S Aspirin) 324 mg 1X ONCE 05/26/18 20:30 05/26/18 20:31 DC 05/26/18 19:56 324 MG Diltiazem HCl (Cardizem) 30 mg 1X ONCE 05/26/18 21:00 05/26/18 21:01 DC 05/26/18 21:48 30 MG Enoxaparin Sodium (Lovenox 100mg Syringe) 90 mg BID 05/26/18 21:00 05/26/18 21:08 90 MG Lactated Ringer's 1,000 ml @ 1,000 mls/hr Q1H 05/26/18 20:00 05/26/18 20:59 DC 05/26/18 19:56 1,000 MLS/HR Nitroglycerin (Nitro-Bid Oint) 0.5 inch TID 05/26/18 21:00 05/26/18 21:48 0.5 INCH Allergies Allergies Allergies Coded Allergies Type Severity Reaction Last Updated Verified Penicillins Allergy Intermediate Rash 02/10/18 Yes Sulfa (Sulfonamide Antibiotics) Allergy Intermediate Nausea 02/10/18 Yes Physical Exam Physical Exam Constitutional:in acute distress, non-toxic appearance. [] HENT: Normocephalic, atraumatic, bilateral external ears normal, oropharynx moist, no oral exudates, nose normal. [] Eyes: PERRLA, EOMI, conjunctiva normal, no discharge. [] Neck: Normal range of motion, no tenderness, supple, no stridor. [] Cardiovascular: Tachycardia Heart rate regular rhythm, no murmur, PMI to the left Lungs & Thorax: Bilateral breath sounds equal apex on auscultation [] Abdomen: Bowel sounds decreased,, soft, no tenderness, no masses, no pulsatile masses. [] Skin: Warm, diaphoretic, no erythema, no rash. [] Back: No tenderness, no CVA tenderness. [] Extremities: No tenderness, no cyanosis, no clubbing, ROM intact, no edema. [] No cording appreciated Neurologic: Alert and oriented X 3, normal motor function, normal sensory function, no focal deficits noted. [] Psychologic: Affect anxious, judgement normal, mood normal. [] Current Patient Data Vital Signs Vital Signs Date Time Temp Pulse Resp B/P (MAP) Pulse Ox O2 Delivery O2 Flow Rate FiO2 05/26/18 21:00 69 16 126/80 (95) 97 Room Air 05/26/18 19:38 98.3 Lab Results Laboratory Tests Test 05/26/18 19:43 White Blood Count 6.9 x10^3/uL (4.0-11.0) Red Blood Count 4.40 x10^6/uL (3.50-5.40) Hemoglobin 13.8 g/dL (12.0-15.5) Hematocrit 40.4 % (36.0-47.0) Mean Corpuscular Volume 92 fL (79-100) Mean Corpuscular Hemoglobin 31 pg (25-35) Mean Corpuscular Hemoglobin Concent 34 g/dL (31-37) Red Cell Distribution Width 13.2 % (11.5-14.5) Platelet Count 218 x10^3/uL (140-400) Neutrophils (%) (Auto) 40 % (31-73) Lymphocytes (%) (Auto) 41 % (24-48) Monocytes (%) (Auto) 15 % (0-9) H Eosinophils (%) (Auto) 3 % (0-3) Basophils (%) (Auto) 1 % (0-3) Neutrophils # (Auto) 2.7 x10^3uL (1.8-7.7) Lymphocytes # (Auto) 2.8 x10^3/uL (1.0-4.8) Monocytes # (Auto) 1.0 x10^3/uL (0.0-1.1) Eosinophils # (Auto) 0.2 x10^3/uL (0.0-0.7) Basophils # (Auto) 0.0 x10^3/uL (0.0-0.2) Prothrombin Time 10.4 SEC (9.4-11.4) Prothrombin Time INR 1.0 (0.9-1.1) PTT 26 SEC (23-33) D-Dimer (Kaylin) 0.97 mg/L (0.00-0.50) H Sodium Level 131 mmol/L (136-145) L Potassium Level 3.5 mmol/L (3.5-5.1) Chloride Level 97 mmol/L (98-107) L Carbon Dioxide Level 24 mmol/L (21-32) Anion Gap 10 (6-14) Blood Urea Nitrogen 16 mg/dL (7-20) Creatinine 1.3 mg/dL (0.6-1.0) H Estimated GFR (Cockcroft-Gault) 39.1 Glucose Level 122 mg/dL (70-99) H Calcium Level 9.0 mg/dL (8.5-10.1) Magnesium Level 2.1 mg/dL (1.8-2.4) Total Bilirubin 0.3 mg/dL (0.2-1.0) Direct Bilirubin 0.1 mg/dL (0.0-0.2) Aspartate Amino Transferase (AST) 18 U/L (15-37) Alanine Aminotransferase (ALT) 21 U/L (14-59) Alkaline Phosphatase 89 U/L (46-116) Creatine Kinase 83 U/L (26-192) Creatine Kinase MB (Mass) 1.6 ng/mL (0.0-3.6) Creatine Kinase MB Relative Index 1.9 % (0-4) Troponin I Quantitative < 0.017 ng/mL (0-0.055) IL-Iyc-G-Type Natriuretic Peptide 125 pg/mL (0-449) Total Protein 7.7 g/dL (6.4-8.2) Albumin 3.9 g/dL (3.4-5.0) Lipase 280 U/L (73-393) EKG EKG My interpretation of EKG shows a supraventricular tachycardia. There is leftward axis and ST ventricular strain pattern.[] My interpretation of second EKG shows a sinus rhythm at 68 bpm. With a leftward axis Radiology/Procedures Radiology/Procedures I interpretation chest x-ray shows basilar atelectasis. Borderline cardiomegaly. Hiatal hernia. Some mild arthritic changes.[] Course & Med Decision Making Course & Med Decision Making Pertinent Labs and Imaging studies reviewed. (See chart for details) Discussed presentation, testing and tx plan with Dr. Hogan- will admit for further eval and tx. [] Final Impression Final Impression 1. Supraventricular Tachycardia[] 2. CP:/ Discomfort 3. Hyponatremia 4. Elevated Creat. 5. Elevated Glucose 6. Hx. HTN 7. Elevated D-dimer Dragon Disclaimer Dragon Disclaimer This electronic medical record was generated, in whole or in part, using a voice recognition dictation system. LIANNE MANDUJANO MD May 26, 2018 19:45
[2018-05-26] MEDS ORDERED: dilTIAZem 25 MG/5 ML VIAL ONE (19:46)
[2018-05-26] MEDS ORDERED: IV RINGERS SOLUTION,LACTATED 1,000 ML IV SCH (20:00)
[2018-05-26 20:08] LABS: BASO % 1 % (0-3); EOS # 0.2 x10^3/uL (0.0-0.7); EOS % 3 % (0-3); HEMATOCRIT 40.4 % (36.0-47.0); HEMOGLOBIN 13.8 g/dL (12.0-15.5); LYMPH # 2.8 x10^3/uL (1.0-4.8); LYMPH % 41 % (24-48); MEAN CORPUSCULAR HEMOGLOBIN 31 pg (25-35); MEAN CORPUSCULAR HGB CONC 34 g/dL (31-37); MEAN CORPUSCULAR VOLUME 92 fL (79-100); MONO % 15 % (0-9); NEUT # 2.7 x10^3uL (1.8-7.7); NEUT % 40 % (31-73); PLATELET COUNT 218 x10^3/uL (140-400); RED CELL DISTRIBUTION WIDTH 13.2 % (11.5-14.5); WHITE BLOOD COUNT 6.9 x10^3/uL (4.0-11.0)
[2018-05-26] MEDS ORDERED: ASPIRIN 81 MG TAB.CHEW PO ONE (20:30)
[2018-05-26] MEDS ORDERED: ENOXAPARIN ** NOTE DOSE ** SYRINGE SQ ONE (20:30)
--- NOTE | 2018-05-26 20:32 | RAD ---
Exam: AP portable chest History: Chest pain. Comparison: February 10, 2018. Findings: The heart and mediastinal structures are within normal limits for size. Hiatal hernia is seen; adjacent atelectasis is noted. No pleural effusion or pneumothorax is identified. There is elevation of right hemidiaphragm Impression: 1. No acute cardiopulmonary process. Electronically signed by: Randolph Mcmahan MD (05/26/2018 8:29 PM) [id number]
[2018-05-26 20:46] LABS: ALBUMIN 3.9 g/dL (3.4-5.0); CREATININE 1.3 mg/dL (0.6-1.0); DIRECT BILIRUBIN 0.1 mg/dL (0.0-0.2); GFR 39.1; MAGNESIUM 2.1 mg/dL (1.8-2.4); POTASSIUM 3.5 mmol/L (3.5-5.1); TOTAL BILIRUBIN 0.3 mg/dL (0.2-1.0); TOTAL PROTEIN 7.7 g/dL (6.4-8.2)
[2018-05-26] MEDS ORDERED: dilTIAZem HCL 30 MG TABLET PO ONE (21:00)
[2018-05-26] MEDS ORDERED: NITROGLYCERIN OINT 1 GM PACKET. TP SCH (21:00)
[2018-05-26] MEDS: ENOXAPARIN ** NOTE DOSE ** SYRINGE SQ SCH (21:08)
--- NOTE | 2018-05-26 21:12 | EKG ---
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
[2018-05-26] MEDS ORDERED: IV RINGERS SOLUTION,LACTATED 1,000 ML IV ONE (21:30)
[2018-05-26 21:48] VITALS: BP 146/76
--- NOTE | 2018-05-26 22:23 | NUR ---
Nursing Note: Patient admitted from the ER, got verbal report from Rachel nurse. Patient arrived via EMS, patient alert and oriented x 4. Patient denies pain at this time. VS stable at this time. Call light within reach. Will continue to monitor.
[2018-05-26] MEDS ORDERED: CALC-157 PO (22:47)
[2018-05-26] MEDS ORDERED: CIPR500T94 PO (22:49)
[2018-05-26] MEDS ORDERED: METO25TA4 PO (22:49)
[2018-05-26] MEDS ORDERED: TRIM100T13 PO (22:49)
[2018-05-27] MEDS ORDERED: ACETAMINOPHEN 325 MG TABLET PO PRN ×2 (01:00→05:00)
[2018-05-27 05:22] VITALS: BP 133/78
[2018-05-27 06:17] LABS: BASO % 1 % (0-3); EOS # 0.1 x10^3/uL (0.0-0.7); EOS % 2 % (0-3); HEMATOCRIT 36.7 % (36.0-47.0); HEMOGLOBIN 12.6 g/dL (12.0-15.5); LYMPH # 1.8 x10^3/uL (1.0-4.8); LYMPH % 34 % (24-48); MEAN CORPUSCULAR HEMOGLOBIN 31 pg (25-35); MEAN CORPUSCULAR HGB CONC 34 g/dL (31-37); MEAN CORPUSCULAR VOLUME 92 fL (79-100); MONO # 0.6 x10^3/uL (0.0-1.1); MONO % 12 % (0-9); NEUT # 2.7 x10^3uL (1.8-7.7); NEUT % 52 % (31-73); PLATELET COUNT 209 x10^3/uL (140-400); RED CELL DISTRIBUTION WIDTH 13.1 % (11.5-14.5); WHITE BLOOD COUNT 5.2 x10^3/uL (4.0-11.0)
--- NOTE | 2018-05-27 06:27 | EKG ---
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
[2018-05-27 06:29] LABS: CALCIUM 8.8 mg/dL (8.5-10.1); POTASSIUM 3.9 mmol/L (3.5-5.1)
--- NOTE | 2018-05-27 06:38 | NUR ---
Nursing note:Called Consult to Germaine [phone]
[2018-05-27] MEDS ORDERED: LEVOTHYROXINE 100 MCG TABLET PO SCH (07:00)
[2018-05-27] MEDS ORDERED: CALCIUM CARB/VIT D3 500/200 TABLET PO SCH (08:00)
[2018-05-27] MEDS ORDERED: CIPROFLOXACIN HCL 500 MG TABLET PO SCH (09:00)
[2018-05-27] MEDS ORDERED: METOPROLOL TART IMMED RELEASE 25 MG TABLET PO SCH (09:00)
[2018-05-27] MEDS: ENOXAPARIN ** NOTE DOSE ** SYRINGE SQ SCH (09:00)
[2018-05-27] MEDS ORDERED: CLOPIDOGREL BISULFATE 75 MG TABLET PO SCH (09:00)
[2018-05-27] MEDS ORDERED: LOSARTAN 25 MG TABLET. PO SCH (09:00)
[2018-05-27] MEDS ORDERED: CHOLECALCIFEROL (VITAMIN D3) 1,000 UNIT TABLET PO SCH (09:00)
[2018-05-27] MEDS ORDERED: TRIMETHOPRIM 100 MG TABLET PO SCH (09:00)
--- NOTE | 2018-05-27 09:25 | PDOC2 ---
BRADEN RAY FEDERAL MEDIATOR 05/27/18 0925: CONSULT Date of Admission DATE: 05/27/18 TIME: 09:13 Reason for Consult: SVT Referring Physician: Dr Hogan Problem List Problems Medical Problems: (1) SVT (supraventricular tachycardia) Status: Acute History of Present Illness This is a pleasant 83-year-old female who presented to the emergency room last night with chief complaint of palpitations. She has a past medical history of hypertension, mild coronary disease by catheterization, SVT, bradycardia on higher doses of beta-roberto, hyperlipidemia, and esophageal spasm. Last night she was in her usual state of health when she had sudden onset chest fluttering. She became lightheaded and slightly short of breath and waited about 10 min for it to go away and when it did not she called her neighbor to bring her to the emergency room. In the emergency room an EKG was done and she was found to be in SVT, she was given 1 dose of IV Cardizem and 1 dose of oral Cardizem and did convert back into sinus bradycardia. She cannot think of anything that might have triggered the episode. She denies any increase in caffeine, stress she has been sleeping well she has been well hydrated her electrolytes are balanced. We have had her evaluated by EP in the past who recommended metoprolol for her SVT. This morning she is feeling better and has had no further problems. She denies any chest pain, pressure or tightness. Her breathing is back to baseline and she denies any palpitations. Past medical history is significant for SVT, hypertension, mild coronary disease, hyperlipidemia, chronic kidney disease stage 2, bradycardia, secondary pulmonary hypertension, irritable bowel syndrome, solitary lung nodule, Acid reflux, thoracic aortic aneurysm, and esophageal spasm. Past surgical history -appendectomy Allergies - penicillin and sulfa Medications - Plavix 75 mg daily, levothyroxine 100 mcg daily, Lopressor 12.5 mg twice a day, Losartan hydrochlorothiazide 100/25 one tablet daily, Pepcid 20 mg daily, pravastatin 20 mg daily, vitamin D3 1 tablet daily, calcium 1 tablet daily. Social history -she lives at home independently. She is a she denies any history of smoking. No alcohol and she uses decaffeinated coffee. Family history -there is no significant premature coronary artery disease. Review of systems -review of 10 organ systems is negative except for as noted in HPI. Physical examination GENERAL: This is a well developed, well nourished female. No apparent distress. SKIN: Warm and dry with normal skin turgor. Negative for pallor. No lesions or rashes noted. EYES: Conjunctiva are clear. Extraocular movements are intact. No xanthelasma. HEAD AND NECK: Oral mucosa is moist. There is no cyanosis. Neck is supple. Jugular venous pressure is flat. Carotid pulses are 2/2 bilaterally. No carotid bruits. There is no obvious thyromegaly. HEART: Regular rate and rhythm. Normal S1 and S2. No S3. No S4. No significant murmur. No rub. PMI is not displaced. LUNGS: Effort is good. There is symmetric expansion bilaterally. Clear to auscultation bilaterally. No wheezes. No crackles. No rhonchi. ABDOMEN: Normal active bowel sounds. Soft. Nontender. EXTREMITIES: No clubbing. No cyanosis. No edema of lower extremities. Palpable pedal pulses. MUSCULOSKELETAL: No kyphosis. No scoliosis. No localized tenderness or stiffness. Gait appears normal. NEUROLOGIC: Alert and oriented times three. Cranial nerves III-XII are grossly intact. Good motor tone and strength in the upper and lower extremities bilaterally. PSYCHOLOGIC: This is a pleasant patient with a normal affect. Procedure Documentation ECHOCARDIOGRAM IMPRESSION (10/26/2017): The patients exam was considered technically difficult due to poor subcostal windows and patient body habitus. The left ventricular size and systolic function are normal. The estimated ejection fraction is 60-65%. There is mild concentric left ventricular hypertrophy. Diastolic function is indeterminate. The right ventricular global systolic function is normal. The left and right ventricular cavity sizes are normal. No significant valvular abnormalities. No pulmonary hypertension is noted. The pulmonary artery pressure is estimated at 27 mmHg. The bubble study is negative; showing no intracardiac shunting. There is no previous comparative study. CTA HEAD/NECK IMPRESSION (10/26/2017): 1. Minimal calcified plaque within the right carotid bulb resulting in less than 10% diameter stenosis as measured according to NASCET criteria. No hemodynamically significant common, internal or external carotid artery stenosis is seen bilaterally. 2. Antegrade flow and widely patent bilateral vertebral arteries. 3. No hemodynamically significant intracranial arterial stenosis is seen on the CTA head study. 4. Mild diffuse cerebral atrophy with associated small vessel ischemic change. CAROTID ARTERY DUPLEX IMPRESSION (10/23/2017): Mild atherosclerotic plaquing at both carotid bifurcations with underlying luminal narrowing in the 0-50% diameter range bilaterally. EVENT MONITOR (ZIO) 10/12/17: 1. Nonsustained episodes of atrial tachycardia, the longest lasting for 27 seconds, which was asymptomatic. 2. No evidence of atrial fibrillation. 3. The patient was asymptomatic during this period. 4. Sinus bradycardia with an average heart rate of 54 and a low heart rate of 34 at 10:40 a.m., which was asymptomatic. ECHOCARDIOGRAM IMPRESSION (04/11/2016):. There is moderate concentric left ventricular hypertrophy. No significant regional wall motion abnormalities are identified. The left ventricular systolic function is normal with an estimated ejection fraction of 60-65%. There is evidence of impaired left ventricular relaxation suggestive of stage I diastolic dysfunction. There is mild pulmonic regurgitation. There is mild to moderate tricuspid regurgitation. The estimated pulmonary artery systolic pressure is 37 mmHg, consistent with mild pulmonary hypertension. Compared to the report (images were not available for review) of the study dated 01/19/2015, the dilatation of the ascending aorta was not seen. LEXISCAN NUCLEAR STRESS TEST IMPRESSION (08/04/2015): Hemodynamic response: There was a normal heart rate and a normal blood pressure response to stress. Clinical response: There was chest pressure during stress, which resolved during recovery. This is considered a nonspecific finding with Lexiscan infusion. Arrhythmias: None. Stress ECG: There were no significant stress induced ECG changes. Myocardial perfusion: Normal perfusion without evidence of infarction or ischemia. Wall motion: Normal. Ejection fraction: 79%. Compared to the report (images were not available for review) from the previous study performed on 08/03/2014, there was no significant change. ECHOCARDIOGRAM IMPRESSION (01/19/2015): The left ventricle is normal in size. There is normal left ventricular wall thickness. No significant regional wall motion abnormalities are identified. The left ventricular systolic function is normal with an estimated ejection fraction of 70%. There is evidence of decreased diastolic compliance of the left ventricle, consistent with mild left ventricular diastolic dysfunction. The proximal ascending aorta appears mildly dilated at 3.5 cm. There is mild aortic valve sclerosis. There is mild mitral annular calcification. The estimated pulmonary artery systolic pressure is 38 mmHg, consistent with borderline pulmonary hypertension. Compared to the report (images were not available for review) of the study dated 01/07/2014 , the left ventricular hypertrophy is improved, but mild dilatation of the aortic root is a new finding. CAROTID ARTERY DUPLEX STUDY IMPRESSION ( 08/14/14):. Mild intimal disease in ICA bilaterally. Normal antegrade flow was noted in both vertebral arteries. LEXISCAN NUCLEAR STRESS TEST IMPRESSION (08/03/2014): Hemodynamic response: There was a normal heart rate and a normal blood pressure response to stress. Clinical response: There was chest pressure during stress, which resolved during recovery. This is considered a nonspecific finding with Lexiscan infusion. Arrhythmias: None. Stress ECG: There were no significant stress induced ECG changes. Myocardial perfusion: Normal perfusion, except for breast artifact, without evidence of infarction or ischemia. Wall motion: Normal. Ejection fraction: >75%. Compared to the report (images were not available for review) from the previous study performed on 06/03/2012, there was no significant change. Assessment / Plan SVT - currently in sinus bradycardia on metoprolol 12.5 twice a day. In the past we have had difficulty increasing her doses because of her underlying bradycardia. We have talked in the past about ablation for her SVT verses pacemaker. She is stable for discharge today. Hypertension, Moderate concentric LVH - Improved to mild on most recent echocardiogram in 2017. Continue present anti-hypertensive medication. Coronary artery disease. Mild to moderate coronary disease by catheterization. Asymptomatic. Nuclear stress test in 07/2015 revealed normal perfusion. Continue optimal medical therapy Hypercholesterolemia. Her goal LDL is < 100 mg/dL. Continue Statin TIA - Continue Plavix - Recent event monitor done did not show any atrial fibrillation. Pulmonary hypertension, Mild Bradycardia with higher doses of betablocker. Esophageal Spasm with IBS. Current Medications Current Medications Diltiazem HCl (Cardizem) 25 mg STK-MED ONCE .ROUTE ; Start 05/26/18 at 19:46; Stop 05/26/18 at 19:47; Status DC Diltiazem HCl (Cardizem) 10 mg 1X ONCE IVP Last administered on 05/26/18at 19:55 ; Start 05/26/18 at 19:45; Stop 05/26/18 at 19:51; Status DC Aspirin (Children'S Aspirin) 324 mg 1X ONCE PO Last administered on 05/26/18at 19:56; Start 05/26/18 at 20:30; Stop 05/26/18 at 20:31; Status DC Lactated Ringer's 1,000 ml @ 1,000 mls/hr Q1H IV Last administered on at 19:56; Start 05/26/18 at 20:00; Stop 05/26/18 at 20:59; Status DC Enoxaparin Sodium (Lovenox 100mg Syringe) 100 mg 1X ONCE SQ ; Start 05/26/18 at 20:30; Stop 05/26/18 at 20:31; Status Cancel Enoxaparin Sodium (Lovenox 100mg Syringe) 90 mg BID SQ Last administered on 05/26at 21:08; Start 05/26/18 at 21:00 Diltiazem HCl (Cardizem) 30 mg 1X ONCE PO Last administered on 05/26/18at 21:48 ; Start 05/26/18 at 21:00; Stop 05/26/18 at 21:01; Status DC Nitroglycerin (Nitro-Bid Oint) 0.5 inch TID TP Last administered on 05/26/18at 21 :48; Start 05/26/18 at 21:00; Stop 05/27/18 at 08:57; Status DC Lactated Ringer's 1,000 ml @ 160 mls/hr 1X ONCE IV Last administered on at 21:50; Start 05/26/18 at 21:30; Stop 05/27/18 at 03:44; Status DC Acetaminophen (Tylenol) 650 mg PRN Q6HRS PRN PO HEADACHE Last administered on at 01:31; Start 05/27/18 at 01:00 Acetaminophen (Tylenol) 650 mg PRN Q6HRS PRN PO PAIN / TEMP; Start 05/27/18 at 05:00 Calcium/Vitamin D (Oscal D 500mg/ 200uts) 1 tab DAILYWBKFT PO ; Start 05/27/18 at 08:00 Clopidogrel Bisulfate (Plavix) 75 mg DAILY PO ; Start 05/27/18 at 09:00 Levothyroxine Sodium (Synthroid) 100 mcg DAILY07 PO Last administered on at 06:26; Start 05/27/18 at 07:00 Metoprolol Tartrate (Lopressor) 12.5 mg BID PO ; Start 05/27/18 at 09:00 Pravastatin Sodium (Pravachol) 20 mg Q48H PO ; Start 05/27/18 at 21:00 Vitamin D (Vitamin D3) 5,000 unit DAILY PO ; Start 05/27/18 at 09:00 Ciprofloxacin (Cipro) 500 mg BID PO ; Start 05/27/18 at 09:00 Famotidine (Pepcid) 20 mg QHS PO ; Start 05/27/18 at 21:00 Losartan Potassium (Cozaar) 25 mg DAILY PO ; Start 05/27/18 at 09:00 Trimethoprim (Proloprim) 100 mg DAILY PO ; Start 05/27/18 at 09:00 Active Scripts Active Reported Metoprolol Tartrate 25 Mg Tablet 0.5 Tab PO BID Cipro (Ciprofloxacin Hcl) 500 Mg Tablet 1 Tab PO BID Trimethoprim 100 Mg Tablet 1 Tab PO DAILY Calcium 500 + Vit D 200 Tablet (Calcium Carbonate/Vitamin D3) 1 Each Tablet 1 Each PO DAILY Pravastatin Sodium 20 Mg Tablet 20 Mg PO QODAY Plavix (Clopidogrel Bisulfate) 75 Mg Tablet 75 Mg PO DAILY Losartan-Hctz 100-25 Mg Tab (Losartan/Hydrochlorothiazide) 1 Each Tablet 1 Each PO DAILY Pepcid (Famotidine) 20 Mg Tablet 20 Mg PO HS Vitamin D3 (Cholecalciferol (Vitamin D3)) 5,000 Unit Tablet 5,000 Unit PO DAILY Tylenol (Acetaminophen) 325 Mg Tablet 650 Mg PO Q6HRS PRN Levoxyl (Levothyroxine Sodium) 100 Mcg Tablet 100 Mcg PO DAILYAC Allergies: Coded Allergies: Penicillins (Verified Allergy, Intermediate, Rash, 02/10/18) Sulfa (Sulfonamide Antibiotics) (Verified Allergy, Intermediate, Nausea, ) VITALS Vital Signs Date Time Temp Pulse Resp B/P (MAP) Pulse Ox O2 Delivery O2 Flow Rate FiO2 05/27/18 05:22 97.5 56 18 133/78 (96) 93 Room Air Labs Laboratory Tests Test 05/26/18 19:43 05/27/18 05:45 White Blood Count 6.9 x10^3/uL (4.0-11.0) 5.2 x10^3/uL (4.0-11.0) Red Blood Count 4.40 x10^6/uL (3.50-5.40) 4.00 x10^6/uL (3.50-5.40) Hemoglobin 13.8 g/dL (12.0-15.5) 12.6 g/dL (12.0-15.5) Hematocrit 40.4 % (36.0-47.0) 36.7 % (36.0-47.0) Mean Corpuscular Volume 92 fL (79-100) 92 fL (79-100) Mean Corpuscular Hemoglobin 31 pg (25-35) 31 pg (25-35) Mean Corpuscular Hemoglobin Concent 34 g/dL (31-37) 34 g/dL (31-37) Red Cell Distribution Width 13.2 % (11.5-14.5) 13.1 % (11.5-14.5) Platelet Count 218 x10^3/uL (140-400) 209 x10^3/uL (140-400) Neutrophils (%) (Auto) 40 % (31-73) 52 % (31-73) Lymphocytes (%) (Auto) 41 % (24-48) 34 % (24-48) Monocytes (%) (Auto) 15 % (0-9) 12 % (0-9) Eosinophils (%) (Auto) 3 % (0-3) 2 % (0-3) Basophils (%) (Auto) 1 % (0-3) 1 % (0-3) Neutrophils # (Auto) 2.7 x10^3uL (1.8-7.7) 2.7 x10^3uL (1.8-7.7) Lymphocytes # (Auto) 2.8 x10^3/uL (1.0-4.8) 1.8 x10^3/uL (1.0-4.8) Monocytes # (Auto) 1.0 x10^3/uL (0.0-1.1) 0.6 x10^3/uL (0.0-1.1) Eosinophils # (Auto) 0.2 x10^3/uL (0.0-0.7) 0.1 x10^3/uL (0.0-0.7) Basophils # (Auto) 0.0 x10^3/uL (0.0-0.2) 0.0 x10^3/uL (0.0-0.2) Prothrombin Time 10.4 SEC (9.4-11.4) Prothromb Time International Ratio 1.0 (0.9-1.1) Activated Partial Thromboplast Time 26 SEC (23-33) D-Dimer (Kaylin) 0.97 mg/L (0.00-0.50) Sodium Level 131 mmol/L (136-145) 133 mmol/L (136-145) Potassium Level 3.5 mmol/L (3.5-5.1) 3.9 mmol/L (3.5-5.1) Chloride Level 97 mmol/L (98-107) 101 mmol/L (98-107) Carbon Dioxide Level 24 mmol/L (21-32) 26 mmol/L (21-32) Anion Gap 10 (6-14) 6 (6-14) Blood Urea Nitrogen 16 mg/dL (7-20) 12 mg/dL (7-20) Creatinine 1.3 mg/dL (0.6-1.0) 1.0 mg/dL (0.6-1.0) Estimated GFR (Cockcroft-Gault) 39.1 53.0 Glucose Level 122 mg/dL (70-99) 104 mg/dL (70-99) Calcium Level 9.0 mg/dL (8.5-10.1) 8.8 mg/dL (8.5-10.1) Magnesium Level 2.1 mg/dL (1.8-2.4) Total Bilirubin 0.3 mg/dL (0.2-1.0) Direct Bilirubin 0.1 mg/dL (0.0-0.2) Aspartate Amino Transf (AST/SGOT) 18 U/L (15-37) Alanine Aminotransferase (ALT/SGPT) 21 U/L (14-59) Alkaline Phosphatase 89 U/L (46-116) Creatine Kinase 83 U/L (26-192) Creatine Kinase MB (Mass) 1.6 ng/mL (0.0-3.6) Creatine Kinase MB Relative Index 1.9 % (0-4) Troponin I Quantitative < 0.017 ng/mL (0-0.055) 0.019 ng/mL (0-0.055) MT-Yxf-H-Type Natriuretic Peptide 125 pg/mL (0-449) Total Protein 7.7 g/dL (6.4-8.2) Albumin 3.9 g/dL (3.4-5.0) Lipase 280 U/L (73-393) SUMMER SERRANO Jr, MD 05/27/18 1007: CONSULT Reason for Consult: Supraventricular tachycardia. Referring Physician: Joi Hogan MD Chief Complaint Palpitations. Source: Patient History of Present Illness She is a pleasant 83-year-old female who is well known to our service. She has a history of paroxysmal supraventricular tachycardia that has responded to beta blockers. However, when she is on a good dose of beta-roberto, then she developed symptomatic bradycardia. She was recently seen in the emergency room for symptomatic bradycardia and her dose of beta-roberto was decreased. She was doing well until this past weekend when she developed recurrent palpitations associated with shortness of breath. She may have felt somewhat lightheaded. She tried vagal maneuvers but this did not stop the palpitations. Therefore, she came to the emergency room for further evaluation. In the emergency room she was given intravenous diltiazem and the supraventricular tachycardia stopped. She was admitted to the medical floor. She has had some brief episodes of supraventricular tachycardia since being on the medical floor but overall, she states she feels improved. She denies any syncope. She denies chest pain or discomfort, paroxysmal nocturnal dyspnea, orthopnea, or lower extremity edema. Because of the supraventricular tachycardia, a cardiology consultation was requested. Review of System Ten point review of systems is as per the history of present illness, otherwise negative. General: Alert, Oriented X3, Cooperative, No acute distress HEENT: Atraumatic, EOMI, Mucous membr. moist/pink Lungs: Clear to auscultation, Normal air movement Heart: Regular rate, Normal S1, Normal S2, No murmurs Abdomen: Normal bowel sounds, Soft, No tenderness, No hepatospenomegaly Extremities: No clubbing, No cyanosis, No edema, Normal pulses, No tenderness/ swelling Skin: No rashes, No breakdown, No significant lesion Neuro: Normal gait, Normal speech, Strength at 5/5 X4 ext, Normal tone, Cranial nerves 3-12 NL Psych/Mental Status: Mental status NL, Mood NL Assessment/Plan Supraventricular tachycardia. She has a known history of supraventricular tachycardia. She was previously seen by our strategic development manager who felt that the risk of ablation would out weigh the benefit. Therefore, ongoing use of beta-roberto was recommended. However, she developed symptomatic bradycardia with good doses of beta-roberto. We will continue her on low-dose beta- roberto. Sick sinus syndrome. The patient seems to developed symptomatic bradycardia with appropriate doses of beta-roberto for the supraventricular tachycardia. As such, we will arrange for an outpatient permanent pacemaker implantation next week. This will be performed at [facility] by . In the interim, I recommend she continue on metoprolol 12.5 milligrams 2 times a day. Coronary artery disease. She is not having any angina. She should continue on the present medication. Of note, she is on clopidogrel instead of aspirin due to a previous history of a transient ischemic attack within the past year. Essential hypertension. Continue losartan and metoprolol. Hypercholesterolemia. Continue statin. Disposition. From a cardiac standpoint, the patient can be discharged home. Our office will contact her regarding instructions for the pacemaker implantation 1 week from today. BRADEN RAY APRN May 27, 2018 09:25 SUMMER SERRANO Jr, MD May 27, 2018 10:07
--- NOTE | 2018-05-27 09:42 | RAD ---
Examination: VQ Scan: Clinical History: Supraventricular tachycardia, elevated d-dimer. Technique: 20 mCi of xenon-133 was administered as an aerosol and spot views were obtained on a gamma camera for a Nuclear Medicine ventilation examination. 5.5 mCi of Tc 99m MAA was administered intravenously and spot views were obtained on the gamma camera for a Nuclear Medicine perfusion examination. Static images were reviewed as a V/Q scan Findings: There is mild retention of the radiotracer on the ventilation images on the washout phase. Focal matched perfusion defects identified in the right lung base region probably a triple matched defect as it is seen on ventilation images and corresponds to elevated right hemidiaphragm. Impression: Triple matched defect identified in the right lower lobe of the lung likely intermediate probability for pulmonary embolism. Electronically signed by: Shlomo Sandy MD (05/27/2018 9:39 AM) [id number]
[2018-05-27 11:01] VITALS: BP 159/94
[2018-05-27 15:04] VITALS: BP 146/74
[2018-05-27] MEDS ORDERED: IOHEXOL 300 MG/ML 75 ML VIAL. IV ONE (16:00)
--- NOTE | 2018-05-27 16:03 | RAD ---
EXAM: Bilateral lower extremity venous Doppler sonogram. HISTORY: Elevated d-dimer. Swelling. TECHNIQUE: Saavedra scale and color Doppler sonographic evaluation of the bilateral lower extremity veins with spectral waveform analysis was performed. FINDINGS: There is normal color flow, normal compressibility and there are normal spectral waveforms in the lower extremity veins. IMPRESSION: No Doppler evidence of lower extremity deep venous thrombosis. Electronically signed by: Tess Brumfield MD (05/27/2018 4:00 PM) [place] [id number]
[2018-05-27] MEDS ORDERED: CONTRAST GIVEN MC PRN (16:15)
--- NOTE | 2018-05-27 16:18 | RAD ---
Examination: CT angiography chest HISTORY: History of elevated d-dimer , supraventricular tachycardia COMPARISON: 04/05/2013 TECHNIQUE: Axial CT angiographic images were performed with IV contrast. Coronal and sagittal 3-D MIP reformats are performed. Exposure: One or more of the following individualized dose reduction techniques were utilized for this examination: 1. Automated exposure control 2. Adjustment of the mA and/or kV according to patient size 3. Use of iterative reconstruction technique FINDINGS: The central airways are patent. Mild cardiomegaly. Moderate sized hiatal hernia is identified. No radiologically significant mediastinal lymphadenopathy is identified. There is no evidence of filling defect identified in the main pulmonary arterial trunk and right and left main pulmonary arteries and the visualized lobar branches of the pulmonary arteries. The evaluation of distal segmental branches of the pulmonary arteries is limited. Minimal right lung base linear airspace opacity likely scarring or atelectasis. There is a 4 mm nodule identified in the right middle lobe of the lung. Minimal atelectasis left lung base. No evidence of pleural effusion or pneumothorax. The right hemidiaphragm is elevated. There is a hypodensity identified in the dome of the liver measuring 2.8 cm and hypodensity identified in the left lobe of the liver measuring 1.9 cm again identified probably cysts. Mild degenerative changes thoracic spine. IMPRESSION: 1. No evidence of central pulmonary embolism. 2. Moderate-sized hiatal hernia. 3. 4 mm nodule identified in the right middle lobe of the lung similar to prior exam. Electronically signed by: Shlomo Sandy MD (05/27/2018 4:16 PM) [id number]
--- NOTE | 2018-05-27 17:02 | NUR ---
pt is discharged home with self care at 1656 via wheelchair via [facility]. pt is in stable condition. pt has all belongings with her. pt received discharge instructions and prescriptions and stated she had no further questions for me. pt has permanent pacemaker placement scheduled for june 03 at 9am at [facility].
[2018-05-27] MEDS ORDERED: PRAVASTATIN 20 MG TABLET. PO SCH (21:00)
[2018-05-27] MEDS ORDERED: FAMOTIDINE 20 MG TABLET PO SCH (21:00)
[2018-05-27] MEDS ORDERED: LACTOBACILLUS RHAMNOSUS GG 1 CAPSULE. PO SCH (21:00)
--- NOTE | 2018-05-28 02:23 | SSS ---
ADMIT DATE: HISTORY OF PRESENT ILLNESS: The patient is an 83-year-old female patient, who came to the Emergency Room with a chief complaint of palpitation. She has a past medical history of hypertension, mild coronary artery disease by catheterization, episode of supraventricular tachycardia-bradycardia on higher dose of beta blockers, hyperlipidemia and esophageal spasm. She was in her usual state of health when she had sudden onset of chest fluttering. She became lightheaded and slightly short of breath and waited for about 10 minutes for it to go away, but it did not and she called her neighbor to bring her to the Emergency Room. In the Emergency Room, an EKG was done and she was found to be in SVT. She was given 1 dose of IV Cardizem and one dose of oral Cardizem and did convert back to her sinus bradycardia. She could not remember anything that might have triggered her episode. She denied any increase in caffeine. She has been sleeping well and has been well hydrated. She was evaluated by an heavy cleaner in the past, who recommended metoprolol for her SVT; however, she developed marked bradycardia and there are plans for her to have permanent pacemaker. Her past medical history is significant. She was evaluated in the Emergency Room and her lab work showed that she has elevated D-dimer and therefore, she underwent initially a pulmonary perfusion ventilation scan, which was read as indeterminate probability for pulmonary embolism. She had venous Doppler ultrasound of both lower extremities, which showed that there is normal color flow and normal compressibility and there are no ____ from the lower extremity veins and as her kidney function improved and her GFR was 53 mL per minute, we did actually a CT angio of the chest, which showed that there is no evidence of central pulmonary embolism, moderate sized hiatal hernia, 4 mm nodule identified in the right middle lobe of the lung similar to previous exam. PAST SURGICAL HISTORY: Significant for sinus surgery, bilateral cataract extraction, tonsillectomy, appendectomy. ALLERGIES: SHE IS ALLERGIC TO PENICILLIN. MEDICATIONS: She is currently on the following medications: She is on Plavix 75 mg once a day, pravastatin 20 mg at bedtime, metoprolol 12.5 mg twice a day, losartan/hydrochlorothiazide 1 tablet once a day, acetaminophen 650 mg every 6 hours, calcium carbonate with vitamin D 1 tablet daily, famotidine 20 mg p.o. at bedtime, levothyroxine 100 mcg daily, and cholecalciferol, vitamin D 5000 units p.o. daily. REVIEW OF SYSTEMS: As per history of present illness. PHYSICAL EXAMINATION GENERAL: When I examined her, she looked well and was clearly in no apparent respiratory distress, pale, but no jaundice, cyanosis, or thyromegaly. No jugular venous distension. No limb edema. VITAL SIGNS: Her heart rate was 56, blood pressure was 146/74, temperature was 97.5, respiratory rate 20, and oxygen saturation was 92%. HEAD, EYES, EARS, NOSE, and THROAT: Showed normocephalic, atraumatic. NECK: Supple. HEART: Showed normal first and second heart sounds with no gallop, rub or murmur. CHEST: Clear to auscultation. No crepitation or rhonchi. ABDOMEN: Distended, soft, nontender. No guarding or rigidity. No organomegaly. Hernial orifices intact. Bowel sounds normal. NEUROLOGIC: She was awake, alert, responding appropriately. Cranial nerves intact. EXTREMITIES: She moves extremities without difficulty. She ambulates without assistance or assistive devices. LABORATORY DATA: Showed a white cell count of 5200, hemoglobin 12, hematocrit 36, MCV 92, and platelet count of ____. Her serum sodium was 133, potassium 3.9, chloride 101, bicarbonate 26, anion gap of 6, BUN 12, creatinine 1, estimated GFR was 53 mL per minute. Her glucose 104, calcium was 8.8. TSH was 2.036. Her prothrombin time was 10.4, INR of 1, and APTT 26. D-dimer was 0.97. The patient has 2 sets of cardiac enzymes that ruled out myocardial infarction. Her chest x-ray showed no acute cardiopulmonary process. V/Q scan was indeterminate and therefore we did venous Doppler ultrasound of both lower extremities, that were negative and CT angio of the chest was negative for central pulmonary embolism. As per Cardiology recommendation, the patient was discharged home with a plan to placement of a permanent pacemaker sometime next week. FINAL DISCHARGE DIAGNOSES: An episode of supraventricular tachycardia that resolved. She reverted back to sinus rhythm. She has multiple other medical problems including hypertension, hyperlipidemia, chronic kidney disease, bradycardia secondary pulmonary hypertension, irritable bowel syndrome, and acid reflux. JASE TRIPP MD DR: ANITHA/jose luis JOB#: [id number] / [id number]
== END 2018-05-27 16:30 | disposition home or self-care (01) | DRG 308 ==
LOC: ER 19:35 → 1 SOUTH 21:10
PROVIDERS: ADMIT Internal Medicine; ATTEND Internal Medicine
DX: I49.5 Sick sinus syndrome (principal); N17.0 Acute kidney failure with tubular necrosis; I47.1 Supraventricular tachycardia; E87.1 Hypo-osmolality and hyponatremia; E03.9 Hypothyroidism, unspecified; E78.00 Pure hypercholesterolemia, unspecified; E78.5 Hyperlipidemia, unspecified; I25.10 Atherosclerotic heart disease of native coronary artery without angina pectoris; I27.29 Other secondary pulmonary hypertension; K21.9 Gastro-esophageal reflux disease without esophagitis; I12.9 Hypertensive chronic kidney disease with stage 1 through stage 4 chronic kidney disease, or unspecified chronic kidney disease; N18.9 Chronic kidney disease, unspecified; K22.4 Dyskinesia of esophagus; K58.9 Irritable bowel syndrome, unspecified; Z79.02 Long term (current) use of antithrombotics/antiplatelets; Z79.899 Other long term (current) drug therapy; Z86.73 Personal history of transient ischemic attack (TIA), and cerebral infarction without residual deficits; Z88.0 Allergy status to penicillin; Z88.2 Allergy status to sulfonamides; Z90.49 Acquired absence of other specified parts of digestive tract; Z98.41 Cataract extraction status, right eye; Z98.42 Cataract extraction status, left eye; Z87.440 Personal history of urinary (tract) infections
CPT/HCPCS: 36415; 71045; 71275; 78582; 80048; 80076; 82553; 83690; 83735; 83880; 84443; 84484; 85025; 85379; 85610; 85730; 93005; 93970; 96361; 96374; A9540; A9558; J1650; J3490; J7120; 99285-25

== ENCOUNTER → 2018-07-12 | Outpatient (CLI) | payer MEDICARE ==
[~2018-07-12] MED LIST changes: +CALC-157 PO; +CIPR500T94 PO; +METO25TA4 PO; +TRIM100T13 PO
--- NOTE | 2018-07-12 18:31 | RAD ---
Double contrast upper GI study 07/12/2018 CLINICAL HISTORY: Hiatal hernia. TECHNIQUE: A double contrast upper GI study was performed under fluoroscopic control. The total fluoroscopic time for this study was 2.3 minutes. 12 digital spot radiographs were obtained. FINDINGS: An AP digital radiograph of the abdomen was obtained as a sales and customer relations rep. This demonstrates a nonobstructive bowel gas pattern. A moderate amount of stool is seen throughout the colon. No radiopaque calculus is seen. Mild S-shaped curvature of the thoracolumbar spine is noted. Degenerative changes are seen involving the thoracic and lumbar spine. The mucosal pattern of the esophagus, stomach, and duodenum is within normal limits. There is a large sliding hiatal hernia. Tertiary contractions of esophagus are consistent with mild esophageal dysmotility. Moderate to severe gastroesophageal reflux is seen to the level of the upper thoracic esophagus. IMPRESSION: 1. Large sliding hiatal hernia. Moderate to severe gastroesophageal reflux. 2. Mild esophageal dysmotility. Electronically signed by: Christopher Cervantes MD (07/12/2018 6:26 PM) [facility]
== END | disposition home or self-care (01) ==
LOC: DXRAD 08:44
PROVIDERS: ATTEND Internal Medicine Gastroenterology
DX: K44.9 Diaphragmatic hernia without obstruction or gangrene (principal); K22.4 Dyskinesia of esophagus; K21.9 Gastro-esophageal reflux disease without esophagitis; I12.9 Hypertensive chronic kidney disease with stage 1 through stage 4 chronic kidney disease, or unspecified chronic kidney disease; N18.3 Chronic kidney disease, stage 3 (moderate); E03.9 Hypothyroidism, unspecified; E78.5 Hyperlipidemia, unspecified; E78.00 Pure hypercholesterolemia, unspecified; Z79.01 Long term (current) use of anticoagulants; Z90.49 Acquired absence of other specified parts of digestive tract; Z87.440 Personal history of urinary (tract) infections; Z88.2 Allergy status to sulfonamides; Z88.0 Allergy status to penicillin
CPT/HCPCS: 74246

== ENCOUNTER 2018-08-11 08:21 | Emergency (ER) | payer MEDICARE ==
[~2018-08-11] VITALS: Ht 167.6 cm; Wt 87.0 kg
--- NOTE | 2018-08-11 08:50 | EKG ---
[address] [address] Test Date: 2018-08-11 Test Time: 08:45:13 Pat Name: MELISA CHAUHAN Department: Room: Gender: F Coding Tech: : [id number] Requested By: SEBASTIAN SMITH Order Number: [id number] Reading MD: Harjinder Prescott Measurements Intervals [place] Rate: 67 P: 40 GA: 194 QRS: -16 QRSD: 92 T: 56 QT: 414 QTc: 440 Interpretive Statements SINUS RHYTHM LEFTWARD AXIS Electronically Signed On 08-12-2018 11:24:54 CDT by Harjinder Prescott
--- NOTE | 2018-08-11 08:58 | PHYS DOC ---
Past History Past Medical History: GERD, Hypertension, Hypothyroid, IBS, TIA, Other Past Surgical History: Appendectomy, Pacemaker, Tonsillectomy, Other Alcohol Use: None Drug Use: None Adult General Chief Complaint Chief Complaint: RIB PAIN [facility] HPI 83-year-old female presents with left-sided rib and back pain. Patient states that she has had intermittent pain in this area for about the last 1 week. She describes the pain as intermittent stabbing. She decided to come in this morning because she is having more trouble in the a.m and now has some nausea. She states that the usual pattern is that this pain become more frequent and bothersome by the end of the day and less in the morning. She denies shortness of breath or diaphoresis. She had a pacemaker installed due to symptomatic bradycardia 2 months ago. She states the surgery went well with no complications. Patient does have a hiatal hernia and GERD history. She was recently switched to a different medication for this pending consult with surgeon to fix her hernia. She denies fever or chills. Review of Systems Review of Systems Constitutional: Denies fever or chills [] Eyes: Denies change in visual acuity, redness, or eye pain [] HENT: Denies nasal congestion or sore throat [] Respiratory: Denies cough or shortness of breath [] Cardiovascular: No additional information not addressed in HPI [] GI: Nausea. No abdominal pain [] : Denies dysuria or hematuria [] Musculoskeletal: Denies back pain or joint pain [] Integument: Denies rash or skin lesions [] Neurologic: Denies headache, focal weakness or sensory changes [] Endocrine: Denies polyuria or polydipsia [] All other systems were reviewed and found to be within normal limits, except as documented in this note. Allergies Allergies Allergies Coded Allergies Type Severity Reaction Last Updated Verified Penicillins Allergy Intermediate Rash 02/10/18 Yes Sulfa (Sulfonamide Antibiotics) Allergy Intermediate Nausea 02/10/18 Yes Physical Exam Physical Exam Constitutional: Well developed, well nourished, no acute distress, non-toxic appearance. [] HENT: Normocephalic, atraumatic, bilateral external ears normal, oropharynx moist, no oral exudates, nose normal. [] Eyes: PERRLA, EOMI, conjunctiva normal, no discharge. [] Neck: Normal range of motion, no tenderness, supple, no stridor. [] Cardiovascular:Heart rate regular rhythm, no murmur [] Lungs & Thorax: Bilateral breath sounds clear to auscultation [] Abdomen: Bowel sounds normal, soft, no tenderness, no masses, no pulsatile masses. [] Skin: Warm, dry, no erythema, no rash. [] Back: No tenderness, no CVA tenderness. [] Extremities: No tenderness, no cyanosis, no clubbing, ROM intact, no edema. [] Neurologic: Alert and oriented X 3, normal motor function, normal sensory function, no focal deficits noted. [] Psychologic: Affect normal, judgement normal, mood normal. [] Current Patient Data Vital Signs Vital Signs Date Time Temp Pulse Resp B/P (MAP) Pulse Ox O2 Delivery O2 Flow Rate FiO2 08/11/18 08:21 97.7 70 18 97 Room Air EKG EKG Sinus rhythm, rate 67, left axis, no ST elevations or depressions[] Radiology/Procedures Radiology/Procedures [] Impressions: Chest, 2 views, 08/11/2018: HISTORY: Left-sided rib and chest pain Comparison is made to a study from 05/26/2018. A left-sided transvenous pacemaker has been inserted with 2 leads extending into the right heart. The heart is within normal limits in size. There is a moderate sized hiatal hernia. The pulmonary vascularity is normal. 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 There is minimal bibasilar linear atelectasis and/or scarring. No pulmonary consolidation is evident. There is no evidence of pleural fluid or pneumothorax. IMPRESSION: 1. Moderate sized hiatal hernia. 2. Minimal bibasilar linear scarring and/or atelectasis. 3. New left-sided transvenous pacemaker. Electronically signed by: Rodger Pollock MD (08/11/2018 9:20 AM) [facility] DICTATED AND SIGNED BY: RODGER POLLOCK MD DATE: 08/11/18 0916 CC: SEBASTIAN SMITH DO; SANDRA AGRCIA Course & Med Decision Making Course & Med Decision Making Pertinent Labs and Imaging studies reviewed. (See chart for details) The patient's chest x-ray does not show any acute findings except for a new pacemaker. There is still a moderate size hiatal hernia seen. Her EKG is unremarkable. Her labs are unremarkable. Her troponin is negative I gave the patient protonix and a GI cocktail. She is feeling better at this time. She is reassured by her negative results. She feels like she can go home. She is stable for discharge. [] Dragon Disclaimer Dragon Disclaimer This electronic medical record was generated, in whole or in part, using a voice recognition dictation system. Departure Departure: Referrals: SANDRA GARCIA (PCP) SEBASTIAN SMITH DO Aug 11, 2018 08:58
--- NOTE | 2018-08-11 09:23 | RAD ---
Chest, 2 views, 08/11/2018: HISTORY: Left-sided rib and chest pain Comparison is made to a study from 05/26/2018. A left-sided transvenous pacemaker has been inserted with 2 leads extending into the right heart. The heart is within normal limits in size. There is a moderate sized hiatal hernia. The pulmonary vascularity is normal. 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 There is minimal bibasilar linear atelectasis and/or scarring. No pulmonary consolidation is evident. There is no evidence of pleural fluid or pneumothorax. IMPRESSION: 1. Moderate sized hiatal hernia. 2. Minimal bibasilar linear scarring and/or atelectasis. 3. New left-sided transvenous pacemaker. Electronically signed by: Rodger Pollock MD (08/11/2018 9:20 AM) [facility]
[2018-08-11] MEDS: PANTOPRAZOLE IV 40 MG VIAL. IVP ONE (09:24)
[2018-08-11] MEDS: ONDANSETRON PF 4 MG/2 ML VIAL. IV ONE (09:24)
[2018-08-11 09:27] LABS: BASO # 0.1 x10^3/uL (0.0-0.2); BASO % 1 % (0-3); EOS # 0.1 x10^3/uL (0.0-0.7); EOS % 2 % (0-3); HEMATOCRIT 39.6 % (36.0-47.0); HEMOGLOBIN 13.5 g/dL (12.0-15.5); LYMPH # 1.2 x10^3/uL (1.0-4.8); LYMPH % 23 % (24-48); MEAN CORPUSCULAR HEMOGLOBIN 31 pg (25-35); MEAN CORPUSCULAR HGB CONC 34 g/dL (31-37); MEAN CORPUSCULAR VOLUME 92 fL (79-100); MONO # 0.7 x10^3/uL (0.0-1.1); MONO % 12 % (0-9); NEUT # 3.3 x10^3uL (1.8-7.7); NEUT % 62 % (31-73); PLATELET COUNT 249 x10^3/uL (140-400); WHITE BLOOD COUNT 5.3 x10^3/uL (4.0-11.0)
[2018-08-11 10:03] LABS: ALBUMIN/GLOBULIN RATIO 1.2 (1.0-1.7); CREATININE 1.1 mg/dL (0.6-1.0); GFR 47.4; POTASSIUM 4.4 mmol/L (3.5-5.1); TOTAL BILIRUBIN 0.5 mg/dL (0.2-1.0); TOTAL PROTEIN 7.4 g/dL (6.4-8.2)
[2018-08-11 10:25] VITALS: BP 149/74
[2018-08-11] MEDS ORDERED: LIDO:MAALOX 1:1 20 ML SINGLE DOSE. ONE (10:28)
[2018-08-11] MEDS: LIDO:MAALOX 1:1 20 ML SINGLE DOSE. PO ONE (10:33)
== END 2018-08-11 10:36 | disposition home or self-care (01) ==
LOC: ER 08:21
DX: R07.81 Pleurodynia (principal); K44.9 Diaphragmatic hernia without obstruction or gangrene; K21.9 Gastro-esophageal reflux disease without esophagitis; I10 Essential (primary) hypertension; E03.9 Hypothyroidism, unspecified; K58.9 Irritable bowel syndrome, unspecified; Z95.0 Presence of cardiac pacemaker; Z86.73 Personal history of transient ischemic attack (TIA), and cerebral infarction without residual deficits; Z88.0 Allergy status to penicillin; Z88.2 Allergy status to sulfonamides
CPT/HCPCS: 36415; 71046; 80053; 83690; 84484; 85025; 93005; 96374; 96375; 99285; C9113; J2405

== ENCOUNTER → 2018-09-06 | Outpatient (CLI) | payer MEDICARE ==
[2018-08-11 10:25] VITALS: BP 149/74
--- NOTE | 2018-09-06 09:22 | RAD ---
DATE: 09/06/2018 EXAM: DIGITAL SCREEN BILAT W/CAD HISTORY: Routine screening COMPARISON: 09/04/2017 This study was interpreted with the benefit of Computerized Aided Detection (CAD). Breast Density: HETERO The breast parenchyma is heterogenously dense, which could reduce sensitivity of mammography. Breast parenchyma level C. FINDINGS: Several small smooth nodules which are probably intramammary lymph nodes are again noted projected over the axillary tail region of the right breast. No spiculated mass or architectural distortion is seen. Benign type calcifications are present. No suspicious microcalcifications have developed. IMPRESSION: There is no mammographic evidence of malignancy in either breast. BI-RADS CATEGORY: 2 BENIGN FINDING(S) RECOMMENDED FOLLOW-UP: 12M 12 MONTH FOLLOW-UP PQRS compliance statement: Patient information was entered into a reminder system with a target due date for the next mammogram. Mammography is a sensitive method for finding small breast cancers, but it does not detect them all and is not a substitute for careful clinical examination. A negative mammogram does not negate a clinically suspicious finding and should not result in delay in biopsying a clinically suspicious abnormality. "Our facility is accredited by the [employer] Mammography Program."
== END | disposition home or self-care (01) ==
LOC: MAMMO 08:01
PROVIDERS: ATTEND Physician Assistant Medical
DX: Z12.31 Encounter for screening mammogram for malignant neoplasm of breast (principal)
CPT/HCPCS: 77067

== ENCOUNTER → 2019-01-06 | Outpatient (CLI) | payer MEDICARE ==
[~2019-01-06] MED LIST changes: +CAND1TAB PO; -CAND1TAB4 PO
--- NOTE | 2019-01-06 14:16 | RAD ---
EXAM: Nuclear gastric emptying scan. HISTORY: Gastroparesis. COMPARISON: None. TECHNIQUE: Serial static images were obtained over the stomach following oral administration of 2 mCi of 99m-Tc sulfur colloid. FINDINGS: The stomach empties into the small bowel without evidence of reflux in the area of the esophagus. There is 66 percent retained tracer activity within the stomach at one hour, 34 percent retained tracer activity within the stomach at 2 hours, 10 percent retained radiotracer activity within the stomach at 3 hours, and 3 percent retained tracer activity within the stomach at 4 hours. IMPRESSION: Solidly delayed gastric emptying at 1 hour. The gastric emptying half-time is between 60 and 120 minutes. Electronically signed by: Tess Brumfield MD (01/06/2019 2:12 PM) [facility]
== END | disposition home or self-care (01) ==
LOC: NM 09:34
PROVIDERS: ATTEND Internal Medicine
DX: K31.84 Gastroparesis (principal)
CPT/HCPCS: 78264; A9541

== ENCOUNTER 2019-02-28 08:34 | Emergency (ER) | payer MEDICARE ==
[~2019-02-28] VITALS: Ht 167.6 cm; Wt 92.1 kg
--- NOTE | 2019-02-28 08:50 | EKG ---
[address] [address] Test Date: 2019-02-28 Test Time: 08:46:59 Pat Name: MELISA CHAUHAN Department: Room: Gender: F Healthcare Translator: LUCINDA : 1935 Requested By: SEBASTIAN SMITH Order Number: [id number] Reading MD: Manjinder Patterson MD Measurements Intervals [place] Rate: 60 P: NV: QRS: -4 QRSD: 84 T: 28 QT: 426 QTc: 430 Interpretive Statements A-PACED NON-SPECIFIC ST/T CHANGES Electronically Signed On 03-04-2019 14:55:06 CDT by Manjinder Patterson MD
--- NOTE | 2019-02-28 09:03 | PHYS DOC ---
Past History Past Medical History: GERD, High Cholesterol, Hypertension, Hypothyroid Past Surgical History: Pacemaker Alcohol Use: None Drug Use: None Adult General Chief Complaint Chief Complaint: DIZZY/LIGHT HEADED [facility] HPI 83-year-old female presents with intermittent dizziness. She describes the dizziness as a lightheaded feeling. She has had this feeling off and on for several days. The episodes last for no more than a couple minutes. The patient has also had some facial pain and sinus congestion. Her PCP as scheduled a referral with ENT. She is also supposed to get a CT of her sinuses, but this is not scheduled yet. The patient doesn't like the dizziness so she decided to come the emergency room she denies fever or chills. She has had some nausea but no vomiting. She denies chest pain, palpitations, shortness of breath, vomiting , diarrhea. Patient did have a pacemaker installed one year ago. Review of Systems Review of Systems Constitutional: Denies fever or chills [] Eyes: Denies change in visual acuity, redness, or eye pain [] HENT: Nasal congestion[] Respiratory: Denies cough or shortness of breath [] Cardiovascular: No additional information not addressed in HPI [] GI: Denies abdominal pain, nausea, vomiting, bloody stools or diarrhea [] : Denies dysuria or hematuria [] Musculoskeletal: Denies back pain or joint pain [] Integument: Denies rash or skin lesions [] Neurologic: Denies headache, focal weakness or sensory changes. Dizziness[] Endocrine: Denies polyuria or polydipsia [] All other systems were reviewed and found to be within normal limits, except as documented in this note. Allergies Allergies Allergies Coded Allergies Type Severity Reaction Last Updated Verified Penicillins Allergy Intermediate Rash 02/10/18 Yes Sulfa (Sulfonamide Antibiotics) Allergy Intermediate Nausea 02/10/18 Yes Physical Exam Physical Exam Constitutional: Well developed, obese, well nourished, no acute distress, non- toxic appearance. [] HENT: Normocephalic, atraumatic, bilateral external ears normal, oropharynx moist, no oral exudates, nose normal. [] Eyes: PERRLA, EOMI, conjunctiva normal, no discharge. [] Neck: Normal range of motion, no tenderness, supple, no stridor. [] Cardiovascular:Heart rate regular rhythm, no murmur [] Lungs & Thorax: Bilateral breath sounds clear to auscultation [] Abdomen: Bowel sounds normal, soft, no tenderness, no masses, no pulsatile masses. [] Skin: Warm, dry, no erythema, no rash. [] Back: No tenderness, no CVA tenderness. [] Extremities: No tenderness, no cyanosis, no clubbing, ROM intact, no edema. [] Neurologic: Alert and oriented X 3, normal motor function, normal sensory function, no focal deficits noted. [] Psychologic: Affect normal, judgement normal, mood normal. [] Current Patient Data Vital Signs Vital Signs Date Time Temp Pulse Resp B/P (MAP) Pulse Ox O2 Delivery O2 Flow Rate FiO2 02/28/19 08:42 97.6 60 18 98 Room Air EKG EKG Likely paced though spikes are hard to see, rate 60, normal axis, no ST elevations or depressions.[] Radiology/Procedures Radiology/Procedures [] Impressions: PQRS Compliance Statement: One or more of the following individualized dose reduction techniques were utilized for this examination: 1. Automated exposure control 2. Adjustment of the mA and/or kV according to patient size 3. Use of iterative reconstruction technique CT HEAD WITHOUT CONTRAST History: DIZZY Comparison: CT head without contrast, October 25, 2017. Technique: Axial images are obtained of the head from the skull base through the vertex without IV contrast. Findings: No mass-effect, midline shift, extra-axial fluid collection, hemorrhage, or obvious acute infarction is identified. Basilar cisterns are patent. The ventricles and sulci are prominent, consistent with age-related cerebral atrophy. There is supratentorial white matter hypoattenuation. This is a nonspecific finding but is commonly due to chronic small vessel ischemic disease. Bone windows demonstrate no acute calvarial abnormality. Moderate mucosal thickening left sphenoid sinus. No air-fluid level is seen. Mastoid air cells are well aerated. IMPRESSION: 1. No acute intracranial abnormality. 2. Age-related cerebral atrophy and supratentorial white matter changes probably due to chronic small vessel ischemic disease. Electronically signed by: Otto Hussein MD (02/28/2019 9:37 AM) [id number] DICTATED AND SIGNED BY: OTTO HUSSEIN MD DATE: 02/28/19 0937 CC: SEBASTIAN SMITH DO; SANDRA GARCIA PA ~ CHEST AP ONLY Clinical Indication: dizzy today Comparison: Two-view chest, August 11, 2018. Findings: Left chest dual-chamber pacer is unchanged. Atherosclerotic aortic arch. Cardiac size is normal. There is moderate-sized hiatal hernia, unchanged. 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 Lungs are clear. There is no pneumothorax. No pleural effusion is appreciated. No acute bone abnormality. IMPRESSION: 1. No acute cardiopulmonary process. 2. Moderate-sized hiatal hernia. Electronically signed by: Otto Hussein MD (02/28/2019 9:18 AM) [id number] DICTATED AND SIGNED BY: OTTO HUSSEIN MD DATE: 02/28/19 0918 CC: SEBASTIAN SMITH DO; SANDRA GARCIA ~ Course & Med Decision Making Course & Med Decision Making Pertinent Labs and Imaging studies reviewed. (See chart for details) EKG is unremarkable. The patient's labs are unremarkable. Her urinalysis has leukocyte esterase, few bacteria. The patient is not having urinary symptoms so I will not treat her at this time. Her head CT is negative for acute findings. There is some mucosal thickening of the ethmoid sinus. I have encouraged her to keep her appointment with ENT to discuss her intermittent dizziness and sinusitis. I do not have a recent admit the patient. She is stable for discharge at this time. [] Dragon Disclaimer Dragon Disclaimer This electronic medical record was generated, in whole or in part, using a voice recognition dictation system. Departure Departure: Impression: Primary Impression: Dizziness Disposition: 01 HOME, SELF-CARE Condition: STABLE Referrals: SANDRA GARCIA (PCP) Patient Instructions: Dizziness, [place] SEBASTIAN SMITH DO Feb 28, 2019 09:03
[2019-02-28 09:06] LABS: BASO % 1 % (0-3); EOS # 0.1 x10^3/uL (0.0-0.7); EOS % 2 % (0-3); HEMATOCRIT 42.2 % (36.0-47.0); HEMOGLOBIN 14.3 g/dL (12.0-15.5); LYMPH # 1.4 x10^3/uL (1.0-4.8); LYMPH % 26 % (24-48); MEAN CORPUSCULAR HEMOGLOBIN 31 pg (25-35); MEAN CORPUSCULAR HGB CONC 34 g/dL (31-37); MEAN CORPUSCULAR VOLUME 92 fL (79-100); MONO # 0.5 x10^3/uL (0.0-1.1); MONO % 10 % (0-9); NEUT # 3.3 x10^3uL (1.8-7.7); NEUT % 62 % (31-73); PLATELET COUNT 215 x10^3/uL (140-400); RED BLOOD COUNT 4.58 x10^6/uL (3.50-5.40); RED CELL DISTRIBUTION WIDTH 14.4 % (11.5-14.5); WHITE BLOOD COUNT 5.3 x10^3/uL (4.0-11.0)
[2019-02-28 09:20] LABS: ALBUMIN 3.8 g/dL (3.4-5.0); CALCIUM 9.1 mg/dL (8.5-10.1); CREATININE 1.2 mg/dL (0.6-1.0); GFR 42.9; TOTAL BILIRUBIN 0.3 mg/dL (0.2-1.0); TOTAL PROTEIN 7.6 g/dL (6.4-8.2)
--- NOTE | 2019-02-28 09:21 | RAD ---
CHEST AP ONLY Clinical Indication: dizzy today Comparison: Two-view chest, August 11, 2018. Findings: Left chest dual-chamber pacer is unchanged. Atherosclerotic aortic arch. Cardiac size is normal. There is moderate-sized hiatal hernia, unchanged. 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 Lungs are clear. There is no pneumothorax. No pleural effusion is appreciated. No acute bone abnormality. IMPRESSION: 1. No acute cardiopulmonary process. 2. Moderate-sized hiatal hernia. Electronically signed by: Otto Jose MD (02/28/2019 9:18 AM) [id number]
--- NOTE | 2019-02-28 09:40 | RAD ---
PQRS Compliance Statement: One or more of the following individualized dose reduction techniques were utilized for this examination: 1. Automated exposure control 2. Adjustment of the mA and/or kV according to patient size 3. Use of iterative reconstruction technique CT HEAD WITHOUT CONTRAST History: DIZZY Comparison: CT head without contrast, October 25, 2017. Technique: Axial images are obtained of the head from the skull base through the vertex without IV contrast. Findings: No mass-effect, midline shift, extra-axial fluid collection, hemorrhage, or obvious acute infarction is identified. Basilar cisterns are patent. The ventricles and sulci are prominent, consistent with age-related cerebral atrophy. There is supratentorial white matter hypoattenuation. This is a nonspecific finding but is commonly due to chronic small vessel ischemic disease. Bone windows demonstrate no acute calvarial abnormality. Moderate mucosal thickening left sphenoid sinus. No air-fluid level is seen. Mastoid air cells are well aerated. IMPRESSION: 1. No acute intracranial abnormality. 2. Age-related cerebral atrophy and supratentorial white matter changes probably due to chronic small vessel ischemic disease. Electronically signed by: Otto Jose MD (02/28/2019 9:37 AM) [id number]
[2019-02-28] MEDS ORDERED: IV NORMAL SALINE 1,000ML 1,000 ML IV ONE (09:45)
[2019-02-28 10:04] LABS: BILIRUBIN,URINE NEG (NEG); CLARITY,URINE HAZY; COLOR,URINE YELLOW; GLUCOSE,URINE NEG (NEG)
[2019-02-28 10:05] LABS: BACTERIA,URINE FEW /HPF (0-FEW); NITRITE,URINE NEG (NEG); RBC,URINE 0 /HPF (0-2); SQUAMOUS EPITHELIAL CELL,UR FEW /LPF; UROBILINOGEN,URINE 0.2 mg/dL (0.2 mg/dL)
[2019-02-28 10:12] VITALS: BP 140/73
== END 2019-02-28 10:22 | disposition home or self-care (01) ==
LOC: ER 08:34
DX: R42 Dizziness and giddiness (principal); R51 Headache; R09.81 Nasal congestion; K44.9 Diaphragmatic hernia without obstruction or gangrene; G31.9 Degenerative disease of nervous system, unspecified; K21.9 Gastro-esophageal reflux disease without esophagitis; E78.00 Pure hypercholesterolemia, unspecified; I10 Essential (primary) hypertension; E03.9 Hypothyroidism, unspecified; Z95.0 Presence of cardiac pacemaker; Z88.0 Allergy status to penicillin; Z88.2 Allergy status to sulfonamides
CPT/HCPCS: 36415; 70450; 71045; 80053; 81001; 84484; 85025; 87086; 93005; 99284-25

== ENCOUNTER → 2019-03-03 | Outpatient (CLI) | payer MEDICARE ==
[2019-02-28 10:12] VITALS: BP 140/73
--- NOTE | 2019-03-03 10:27 | RAD ---
Examination: CT maxillofacial without contrast HISTORY: History of chronic sinusitis, facial pain COMPARISON: None available. TECHNIQUE: Axial CT images of the maxillofacial were performed without contrast. Coronal and sagittal reformats performed Exposure: One or more of the following individualized dose reduction techniques were utilized for this examination: 1. Automated exposure control 2. Adjustment of the mA and/or kV according to patient size 3. Use of iterative reconstruction technique FINDINGS: The visualized intracranial portion grossly appears unremarkable. The visualized parotid glands, masticators spaces grossly appears unremarkable. The bilateral orbital globes appear intact. The visualized bilateral frontal sinuses, sphenoid sinuses, left ethmoidal sinuses are patent. There is opacification of the posterior right ethmoidal sinus. There is small mucous retention cyst or polyp identified in the left maxillary sinus. The ostiomeatal complexes are patent. The bilateral orbital hernandez appear intact. IMPRESSION: 1. Opacification of the posterior right ethmoidal sinus likely sinus disease. Small mucous retention cyst or polyp identified in the left maxillary sinus. Electronically signed by: Shlomo Sandy MD (03/03/2019 10:25 AM) [id number]
== END | disposition home or self-care (01) ==
LOC: CT 08:08
PROVIDERS: ATTEND Physician Assistant Medical
DX: J32.8 Other chronic sinusitis (principal)
CPT/HCPCS: 70486

== ENCOUNTER → 2019-09-09 | Outpatient (CLI) | payer MEDICARE ==
--- NOTE | 2019-09-10 14:57 | RAD ---
DATE: 09/09/2019 EXAM: DIGITAL SCREEN BILAT W/CAD HISTORY: Routine screening COMPARISON: 08/31/2016, 09/04/2017, 09/06/2018 mammographic exams This study was interpreted with the benefit of Computerized Aided Detection (CAD). Breast Density: DENSE The breast parenchyma is dense, which could reduce the sensitivity of mammography. Breast parenchyma level density D. FINDINGS: Left axillary level pacemaker device is present at screening evaluation at this site. No suspicious calcifications, new masses, or distortion in the interval. Benign-appearing small masses are stable. IMPRESSION: Stable BI-RADS CATEGORY: 1 NEGATIVE RECOMMENDED FOLLOW-UP: 12M 12 MONTH FOLLOW-UP PQRS compliance statement: Patient information was entered into a reminder system with a target due date for the next mammogram. Mammography is a sensitive method for finding small breast cancers, but it does not detect them all and is not a substitute for careful clinical examination. A negative mammogram does not negate a clinically suspicious finding and should not result in delay in biopsying a clinically suspicious abnormality. "Our facility is accredited by the [employer] Mammography Program."
== END | disposition home or self-care (01) ==
LOC: MAMMO 08:45
PROVIDERS: ATTEND Physician Assistant Medical
DX: Z12.31 Encounter for screening mammogram for malignant neoplasm of breast (principal); N64.89 Other specified disorders of breast; Z95.0 Presence of cardiac pacemaker
CPT/HCPCS: 77067

== ENCOUNTER → 2020-05-08 | Outpatient (CLI) | payer MEDICARE ==
[~2020-05-08] MED LIST changes: +MECL-75 PO; -MECL25TA3 PO
--- NOTE | 2020-05-08 11:10 | RAD ---
EXAM: AP, oblique and lateral views left knee DATE: 05/08/2020 10:57 AM INDICATION: Reason: Left knee pain, no fall or trauma to left knee / Spl. Instructions: / History: COMPARISON: No Prior FINDINGS: No evidence of acute fracture or dislocation. Decreased bone mineral density. Moderate medial compartment joint space narrowing with tricompartmental osteophytes. No knee joint effusion. IMPRESSION: 1. No evidence of acute fracture or dislocation. 2. Left knee joint osteoarthritis. Electronically signed by: Eulalio Phillip MD (05/08/2020 11:07 AM) [id number]
== END | disposition home or self-care (01) ==
LOC: PMG 10:29
PROVIDERS: ATTEND Physician Assistant Medical
DX: M17.12 Unilateral primary osteoarthritis, left knee (principal); M25.762 Osteophyte, left knee
CPT/HCPCS: 73562

== ENCOUNTER → 2020-09-28 | Outpatient (CLI) | payer MEDICARE ==
--- NOTE | 2020-09-28 15:00 | RAD ---
EXAM: Bilateral screening mammogram. HISTORY: 85-year-old female presents for screening mammography. TECHNIQUE: Full-field digital craniocaudal and mediolateral oblique views of both breasts are obtained for evaluation. Computer aided detection was not applied. COMPARISON: 09/06/2018 and 09/09/2019 BREAST PARENCHYMAL DENSITY: Level C - Heterogeneously dense. FINDINGS: There is no new suspicious mass, microcalcification or region of architectural distortion. There is stable areas of nodularity and asymmetry within both breasts. There are few benign calcifications. There is a biopsy clip within the 7:00 position of the left breast. IMPRESSION: BI-RADS Category 2: Benign finding(s). RECOMMENDATION: Annual mammography is recommended. If your mammogram demonstrates that you have dense breast tissue, which could hide abnormalities, and if you have other risk factors for breast cancer that have been identified, you might benefit from supplemental screening tests that may be suggested by your ordering physician. Dense breast tissue, in and of itself, is a relatively common condition. This information is not provided to cause undue concern, but rather to raise your awareness and to promote discussion with your physician regarding the presence of other risk factors, in addition to dense breast tissue. A report of your mammography results will be sent to you and your physician. You should contact your physician if you have any questions or concerns regarding this report. Mammography is a sensitive method for finding small breast cancers, but it does not detect them all and is not a substitute for careful clinical examination. A negative mammogram does not negate a clinically suspicious finding and should not result in delay in biopsying a clinically suspicious abnormality. PQRS compliance statement - Patient information was entered into a reminder system with a target due date for the next mammogram. "Our facility is accredited by the [employer] Mammography [employer]." Electronically signed by: Tess Brumfield MD (09/28/2020 2:57 PM) [id number]
== END ==
LOC: MAMMO 14:28
PROVIDERS: ATTEND Physician Assistant Medical
DX: Z12.31 Encounter for screening mammogram for malignant neoplasm of breast (principal); N64.89 Other specified disorders of breast
CPT/HCPCS: 77067

== ENCOUNTER → 2020-11-09 | Outpatient (CLI) | payer MEDICARE ==
[2020-11-09 11:19] LABS: ALBUMIN 3.6 g/dL (3.4-5.0); ALBUMIN/GLOBULIN RATIO 0.9 (1.0-1.7); CALCIUM 9.1 mg/dL (8.5-10.1); CREATININE 1.4 mg/dL (0.6-1.0); GFR 35.7; MAGNESIUM 2.1 mg/dL (1.8-2.4); POTASSIUM 4.4 mmol/L (3.5-5.1); TOTAL BILIRUBIN 0.3 mg/dL (0.2-1.0); TOTAL PROTEIN 7.8 g/dL (6.4-8.2)
[2020-11-09 13:57] LABS: THYROID STIM HORMONE (TSH) 2.304 uIU/mL (0.358-3.740)
== END ==
LOC: LAB 09:07
PROVIDERS: ATTEND Nurse Practitioner
DX: E78.00 Pure hypercholesterolemia, unspecified (principal); R00.2 Palpitations
CPT/HCPCS: 36415; 80053; 80061; 83735; 84443

== ENCOUNTER → 2021-10-14 | Outpatient (CLI) | payer MEDICARE ==
[~2021-10-14] MED LIST changes: -VALS1TAB22 PO; +VALS1TAB23 PO
--- NOTE | 2021-10-14 10:22 | RAD ---
DATE: 10/14/2021. EXAM: MG 2D BILAT SCREENING HISTORY: Screening study COMPARISON: Comparison is made with prior exams including one of 09/28/2020. This study was interpreted with the benefit of Computerized Aided Detection (CAD). FINDINGS: The breast parenchyma Is heterogeneiously dense, which could reduce sensitivity of mammography. Breas t parenchyma level III.. No new discrete or dominant mass is seen, and there are no suspicious calcifications. IMPRESSION: No findings of malignancy. BI-RADS CATEGORY: 1 NEGATIVE RECOMMENDED FOLLOW-UP: 12M 12 MONTH FOLLOW-UP PQRS compliance statement: Patient information was entered into a reminder system with a target due d ate for the next mammogram. Mammography is a sensitive method for finding small breast cancers, but it does not detect them all a nd is not a substitute for careful clinical examination. A negative mammogram does not negate a clin ically suspicious finding and should not result in delay in biopsying a clinically suspicious abnorma lity. "Our facility is accredited by the [employer] Mammography Program." Electronically signed by: Temo Robertson Jr., MD (10/14/2021 10:20 AM) [id number]
== END ==
LOC: MAMMO 07:57
PROVIDERS: ATTEND Physician Assistant Medical
DX: Z12.31 Encounter for screening mammogram for malignant neoplasm of breast (principal); N64.89 Other specified disorders of breast
CPT/HCPCS: 77067

== ENCOUNTER → 2022-02-01 | Outpatient (CLI) | payer MEDICARE ==
--- NOTE | 2022-02-01 09:11 | RAD ---
Left lower extremity venous Doppler ultrasound History: Reason: LLE PAIN Comparison: None. Procedure: Color flow Doppler, Doppler spectral analysis, and 2D images are obtained with and without compression in the area of the common femoral vein, superficial femoral vein - femoral vein junction , main femoral vein (superficial femoral vein) and popliteal vein. Veins of the proximal calf are als o imaged. Findings: There is normal color flow, augmentation, and compressibility of all visualized vein segments. No alexa dence of deep venous thrombus is present. There is a large complex fluid collection of the popliteal fossa to the mid posterior calf. Given the size of the collection it cannot be accurately measured. Color Doppler interrogation is negative. A Archer's cyst that has ruptured/dissected into the calf or a subacute hematoma or seroma are considera tions. The AP diameter is approximately 3.5 cm and the craniocaudal length is greater than 9 cm. IMPRESSION: No evidence of left lower extremity deep venous thrombosis. Electronically signed by: Otto Jose MD (02/01/2022 9:08 AM) [id number]
== END ==
LOC: US 08:29
PROVIDERS: ATTEND Physician Assistant Medical
DX: M71.22 Synovial cyst of popliteal space [Baker], left knee (principal); M79.605 Pain in left leg
CPT/HCPCS: 93971